=== PATIENT | female | born 1965 | race Two or more races ===

== ENCOUNTER 2020-03-03 15:14 | Outpatient (REF) | payer OTHER, SELFPAY ==
[2020-03-05 19:17] LABS: HPV mRNA E6/E7 Not Detected (Not Detected)
== END 2020-03-03 15:15 | disposition home or self-care (01) ==
LOC: HO.LAB 15:14
PROVIDERS: PCP Internal Medicine; Visit Provider Advanced Practice Midwife
DX: Z12.4 Encounter for screening for malignant neoplasm of cervix (principal); Z80.9 Family history of malignant neoplasm, unspecified
CPT/HCPCS: 87624; 88141; 88142

== ENCOUNTER 2020-03-04 11:36 | Outpatient (REF) | payer OTHER, SELFPAY ==
--- NOTE | 2020-03-04 11:46 | MM_ITS ---
EXAMINATION: MM SCREENING DIGITAL MAMMOGRAPHY, BILATERAL CLINICAL INFORMATION: Screening. Asymptomatic. Family history breast cancer: Mother, maternal grandmother, paternal grandmother, paternal aunt. The lifetime risk of breast cancer based on the Tyrer-Cuzick Model is 27%. COMPARISON: Mammography: 10/19/2017, 10/11/2016, 03/31/2016, 09/15/2015, 09/02/2015 TECHNIQUE: Digital mammography is performed in craniocaudal and mediolateral oblique views along with computer-aided detection (CAD). Wheelchair-bound with inherent technical challenges requiring 2 technologists. Exam tailored to patient capabilities. FINDINGS: There are scattered areas of fibroglandular density (ACR BI-RADS breast composition Category b). The left breast is unremarkable. There is no developing density or interval mass or architectural abnormality. The right breast has chronic asymmetry posterior 11:00 position and some punctate round calcifications again seen posterior medial right breast. No significant changes. MM/MM screening mammo BI IMPRESSION: No significant changes from prior studies. ASSESSMENT: BI-RADS 2: Benign RECOMMENDATION: 1. Routine annual mammography screening. 2. The lifetime risk of breast cancer based on the Tyrer-Cuzick Model is 27%. Additional annual adjunct screening with breast MRI may be of benefit in women with a risk score of 20% or greater. This patient's information was entered into a reminder system with a target due date for their next mammogram.
== END 2020-03-04 11:37 | disposition home or self-care (01) ==
LOC: HO.MAMMO 11:36
PROVIDERS: PCP Internal Medicine; Visit Provider Internal Medicine
DX: Z12.31 Encounter for screening mammogram for malignant neoplasm of breast (principal)
CPT/HCPCS: 77067

== ENCOUNTER → 2020-03-25 11:23 | Outpatient (BNVA) | payer MEDICARE, SELFPAY | PROVIDERS: PCP Internal Medicine; Visit Provider Surgery | DX: Z80.3 Family history of malignant neoplasm of breast (principal); Z80.0 Family history of malignant neoplasm of digestive organs; Z80.42 Family history of malignant neoplasm of prostate; Z80.41 Family history of malignant neoplasm of ovary | CPT/HCPCS: 99202 ==

== ENCOUNTER 2020-06-03 10:51 | Outpatient (REF) | payer OTHER, SELFPAY ==
[2020-06-03 12:29] LABS: Alanine Aminotransferase 17 U/L (0-31); Albumin Level 3.8 g/dL (3.5-5.0); Alkaline Phosphatase 119 U/L (39-117); Anion Gap 14 (12-20); Aspartate Amino Transferase 18 U/L (5-31); Bilirubin Total 0.3 mg/dL (0.0-1.0); Blood Urea Nitrogen 18 mg/dL (9-16); Carbon Dioxide 27 mmol/L (22-29); Chloride 103 mmol/L (96-108); Cholesterol 143 mg/dL; Estimated Glomerular Filt Rate > 60; Glucose Fasting 90 mg/dL (60-99); HDL Cholesterol 55 mg/dL; LDL Cholesterol Calculated 70 mg/dl; Potassium 4.5 mmol/L (3.3-5.1); Sodium 139 mmol/L (135-145); Total Protein 7.3 g/dL (6.5-8.0); Triglycerides 90 mg/dL
[2020-06-04 18:52] LABS: Phenytoin, Free/Unbound 1.5 mg/L (1.0-2.0)
[2020-06-08 16:32] LABS: Vitamin D 25-OH, D2 <4 ng/mL; Vitamin D 25-OH, D3 54 ng/mL; Vitamin D 25-OH, Total 54 ng/mL (30-100)
== END 2020-06-03 10:52 | disposition home or self-care (01) ==
LOC: HO.LAB 10:51
PROVIDERS: PCP Internal Medicine; Visit Provider Internal Medicine
DX: E55.9 Vitamin D deficiency, unspecified (principal); R56.9 Unspecified convulsions; E78.5 Hyperlipidemia, unspecified
CPT/HCPCS: 36415; 80053; 80061; 80184; 80186; 82306

== ENCOUNTER → 2020-07-27 14:43 | Outpatient (BNVA) | payer OTHER, SELFPAY | PROVIDERS: PCP Internal Medicine; Referring Provider Internal Medicine; Visit Provider Surgery | DX: Z91.89 Other specified personal risk factors, not elsewhere classified (principal) | CPT/HCPCS: 99212 ==

== ENCOUNTER 2020-09-02 16:48 | Outpatient (REF) | payer OTHER, SELFPAY | END 2020-09-02 16:49 | disposition home or self-care (01) | LOC: HO.MRI 16:48 | PROVIDERS: PCP Internal Medicine; Visit Provider Surgery | DX: Z13.89 Encounter for screening for other disorder (principal) ==

== ENCOUNTER 2020-09-09 10:21 | Outpatient (REF) | payer OTHER, SELFPAY | END 2020-09-09 10:22 | disposition home or self-care (01) | LOC: HO.MRI 10:21 | PROVIDERS: Visit Provider Surgery | DX: Z13.89 Encounter for screening for other disorder (principal) ==

== ENCOUNTER 2020-09-17 12:10 | Outpatient (REF) | payer OTHER, SELFPAY ==
--- NOTE | ~2020-09-17 | US_ITS ---
EXAMINATION: US SCREENING ULTRASOUND BREAST, BILATERAL CLINICAL INFORMATION: Family history breast cancer. Tyrer-Cuzick Score 27%%. Patient unable to undergo MRI. Request bilateral screening breast ultrasound as alternative to MR. COMPARISON: Mammography 03/04/2020, 11/20/2018, 10/19/2017 TECHNIQUE: Ultrasound is performed using grayscale imaging and color Doppler. Imaging is performed to include the four quadrants and retroareolar region. Both breasts are imaged. FINDINGS: Right breast: There is no suspicious finding by ultrasound. There is no cystic or solid mass or focal architectural abnormality. Left breast: There is an anechoic smooth nodule 1:00 position 7 cm from nipple measuring under 5 mm. There is no solid component or color flow. There is no increased or decreased through transmission of sound. Finding is probably benign and will be reassessed again with targeted ultrasound in 6 months. Remainder of the left breast shows no cystic or solid mass or focal architectural abnormality. Results are provided to the patient and family at time of visit using an baker biscuit. US/US breast LT complete IMPRESSION: 1. Left: Small anechoic nodule without posterior sound characteristics 1:00 position under 5 mm. 2. Right: No suspicious findings on screening breast ultrasound. ASSESSMENT: BI-RADS 3: Probably Benign RECOMMENDATION: Targeted left breast ultrasound in 6 months. This patient's information was entered into a reminder system with a target due date for their next breast imaging.
--- NOTE | ~2020-09-17 | US_ITS ---
EXAMINATION: US SCREENING ULTRASOUND BREAST, BILATERAL CLINICAL INFORMATION: Family history breast cancer. Tyrer-Cuzick Score 27%%. Patient unable to undergo MRI. Request bilateral screening breast ultrasound as alternative to MR. COMPARISON: Mammography 03/04/2020, 11/20/2018, 10/19/2017 TECHNIQUE: Ultrasound is performed using grayscale imaging and color Doppler. Imaging is performed to include the four quadrants and retroareolar region. Both breasts are imaged. FINDINGS: Right breast: There is no suspicious finding by ultrasound. There is no cystic or solid mass or focal architectural abnormality. Left breast: There is an anechoic smooth nodule 1:00 position 7 cm from nipple measuring under 5 mm. There is no solid component or color flow. There is no increased or decreased through transmission of sound. Finding is probably benign and will be reassessed again with targeted ultrasound in 6 months. Remainder of the left breast shows no cystic or solid mass or focal architectural abnormality. Results are provided to the patient and family at time of visit using an amf mechanic. US/US breast RT complete IMPRESSION: 1. Left: Small anechoic nodule without posterior sound characteristics 1:00 position under 5 mm. 2. Right: No suspicious findings on screening breast ultrasound. ASSESSMENT: BI-RADS 3: Probably Benign RECOMMENDATION: Targeted left breast ultrasound in 6 months. This patient's information was entered into a reminder system with a target due date for their next breast imaging.
== END 2020-09-17 12:11 | disposition home or self-care (01) ==
LOC: HO.MAMMO 12:10
PROVIDERS: Visit Provider Surgery
DX: N63.24 Unspecified lump in the left breast, lower inner quadrant (principal); Z91.89 Other specified personal risk factors, not elsewhere classified
CPT/HCPCS: 76641

== ENCOUNTER → 2021-01-25 12:16 | Outpatient (BNVA) | payer OTHER, SELFPAY | PROVIDERS: PCP Internal Medicine; Referring Provider Internal Medicine; Visit Provider Surgery | DX: N64.4 Mastodynia (principal); Z80.42 Family history of malignant neoplasm of prostate; Z80.0 Family history of malignant neoplasm of digestive organs; Z80.3 Family history of malignant neoplasm of breast | CPT/HCPCS: 99212 ==

== ENCOUNTER → 2021-03-04 15:27 | Outpatient (BNVA) | payer OTHER, SELFPAY | PROVIDERS: Visit Provider Advanced Practice Midwife ==

== ENCOUNTER 2021-03-30 12:37 | Outpatient (REF) | payer OTHER, SELFPAY ==
--- NOTE | ~2021-03-30 | MM_ITS ---
EXAMINATION: MM DIAGNOSTIC DIGITAL BREAST TOMOSYNTHESIS, BILATERAL US DIAGNOSTIC ULTRASOUND BREAST, BILATERAL CLINICAL INFORMATION: Due for yearly. Patient has right breast pain 9:00 position for approximately 2 months. Also follow-up probable benign nodule/cyst left breast noted on screening breast ultrasound 09/17/2020. Family history breast cancer, mother. The lifetime risk of breast cancer based on the Tyrer-Cuzick Model is 23%. COMPARISON: Mammography: 03/04/2020, 11/20/2018, 10/19/2017, 10/11/2016; bilateral breast ultrasound 09/17/2020 TECHNIQUE: Digital breast tomosynthesis is performed in both the craniocaudal and mediolateral oblique views along with computer-aided detection (CAD). Synthesized 2D images are generated from the tomosynthesis. Exam is technically challenging, patient wheelchair bound and 2 technologists required for positioning. Exam tailored to patient capabilities. Ultrasound right breast is targeted to the area of clinical symptoms 8:00 through 12:00 position. Ultrasound left breast is targeted to the upper breast 11:00 through 1:00 position. Ultrasound is performed using grayscale imaging and color Doppler without and with harmonics. FINDINGS: Mammography: There are scattered areas of fibroglandular density (ACR BI-RADS breast composition Category b). Parenchymal pattern is similar to prior studies. There is no developing density or interval mass or architectural abnormality. No skin thickening or coarsening of the Smith's ligaments. Linear asymmetric density posterior 11:00 right breast on CC view is stable from prior exams. There are some stable punctate calcifications mid 3:00 right breast again noted, possibly vascular. Ultrasound: Targeted right breast ultrasound demonstrates no cystic or solid mass, architectural abnormality, or focal duct ectasia. There is no edema tracking in soft tissue planes or skin thickening. Targeted ultrasound left breast demonstrates circumscribed anechoic nodule 1:00 position 6 cm from nipple under 5 mm similar to previous ultrasound 09/17/2020. There is no definite increased through-transmission of sound. No associated peripheral or internal color flow. No new cystic or solid mass or architectural abnormality. Management: Results are discussed with the patient and family at time of visit, using an director heart. MM/MM tomosynthesis diagnostic BI IMPRESSION: 1. No mammographic or ultrasound evidence of malignancy or inflammatory changes. 2. Mammogram shows no significant changes from prior study. 3. Probable benign small circumscribed anechoic nodule left breast stable, under 5 mm. 4. Patient study limitations, technically challenging exam. ASSESSMENT: BI-RADS 3: Probably Benign RECOMMENDATION: 1. Patient's right breast pain should be managed based on the clinical impression. 2. Bilateral mammography in 12 months. Targeted left breast ultrasound at time of mammography to reassess probable benign anechoic nodule under 5 mm. This patient's information was entered into a reminder system with a target due date for their next mammogram.
== END 2021-03-30 12:38 | disposition home or self-care (01) ==
LOC: HO.MAMMO 12:37
PROVIDERS: PCP Internal Medicine; Visit Provider Advanced Practice Midwife
DX: N64.4 Mastodynia (principal); Z91.89 Other specified personal risk factors, not elsewhere classified
CPT/HCPCS: 76642; 77062; 77066

== ENCOUNTER → 2021-08-02 12:20 | Outpatient (BNVA) | payer OTHER, SELFPAY | PROVIDERS: PCP Internal Medicine; Visit Provider Surgery | DX: N64.4 Mastodynia (principal); Z91.89 Other specified personal risk factors, not elsewhere classified; Z80.3 Family history of malignant neoplasm of breast; Z80.42 Family history of malignant neoplasm of prostate; Z80.0 Family history of malignant neoplasm of digestive organs; Z80.41 Family history of malignant neoplasm of ovary | CPT/HCPCS: 99212 ==

== ENCOUNTER → 2021-08-08 12:25 | Outpatient (BNVA) | payer OTHER, SELFPAY | PROVIDERS: PCP Internal Medicine; Visit Provider Orthopaedic Surgery | DX: M19.011 Primary osteoarthritis, right shoulder (principal) | CPT/HCPCS: 20610; 99202; J1100 ==

== ENCOUNTER 2021-09-16 08:45 | Outpatient (REF) | payer OTHER, SELFPAY ==
[2021-09-16 09:28] LABS: MANUAL DIFF FLAG NO
[2021-09-16 10:59] LABS: Basophils Percent Auto 0.3 % (0-2); Eosinophils Absolute Auto 0.1 X10*3/uL (0.0-0.4); Eosinophils Percent Auto 1.4 % (0-4); Hematocrit 39.1 % (37.0-47.0); Hemoglobin 13.2 g/dl (12.0-16.0); Imm Gran Abs Auto 0.03 X10*3/uL (0.00-0.03); Imm Gran Pct Auto 0.5 % (0.0-0.4); Lymphocytes Absolute Auto 3.1 X10*3/uL (1.2-4.9); Lymphocytes Percent Auto 52.8 % (20-40); Mean Corpuscular HGB Conc 33.8 g/dl (31.0-35.0); Mean Corpuscular Hemoglobin 33.1 pg (27.0-33.0); Mean Platelet Volume 11.8 fL (9.4-12.3); Monocytes Absolute Auto 0.6 X10*3/uL (0.1-1.2); Monocytes Percent Auto 9.6 % (2-11); Neutrophils Absolute Auto 2.1 x10*3/uL (2.0-8.3); Neutrophils Percent Auto 35.4 % (45-73); Platelet Count 145 X10*3/uL (160-400); Red Blood Count 3.99 X10*6/uL (4.20-5.50); Red Cell Distribution Width 13.5 % (11.0-16.0); White Blood Count 5.8 X10*3/uL (4.8-10.8)
[2021-09-16 11:36] LABS: Alanine Aminotransferase 19 U/L (0-31); Albumin Level 3.8 g/dL (3.5-5.0); Alkaline Phosphatase 113 U/L (39-117); Anion Gap 15 (12-20); Aspartate Amino Transferase 18 U/L (5-31); Bilirubin Total < 0.2 mg/dL (0.0-1.0); Blood Urea Nitrogen 21 mg/dL (9-16); Calcium 8.8 mg/dL (8.4-10.2); Carbon Dioxide 25 mmol/L (22-29); Chloride 105 mmol/L (96-108); Cholesterol 156 mg/dL; Estimated Glomerular Filt Rate > 60; Glucose Fasting 80 mg/dL (60-99); HDL Cholesterol 54 mg/dL; LDL Cholesterol Calculated 90 mg/dl; Potassium 4.2 mmol/L (3.3-5.1); Sodium 141 mmol/L (135-145); Total Protein 7.4 g/dL (6.5-8.0); Triglycerides 63 mg/dL
[2021-09-16 12:15] LABS: Valproate 62.9 mcg/mL (50.0-100.0)
[2021-09-18 12:47] LABS: Phenytoin, Free/Unbound 0.6 mg/L (1.0-2.0)
== END 2021-09-16 08:46 | disposition home or self-care (01) ==
LOC: HO.LAB 08:45
PROVIDERS: PCP Internal Medicine; Visit Provider Internal Medicine
DX: R56.9 Unspecified convulsions (principal); E55.9 Vitamin D deficiency, unspecified; E78.5 Hyperlipidemia, unspecified
CPT/HCPCS: 36415; 80053; 80061; 80164; 80184; 80186; 82306; 85025

== ENCOUNTER → 2021-11-07 13:34 | Outpatient (BNVA) | payer OTHER, SELFPAY | PROVIDERS: PCP Internal Medicine; Visit Provider Orthopaedic Surgery | DX: M19.011 Primary osteoarthritis, right shoulder (principal) | CPT/HCPCS: 20610; 99212; J1100 ==

== ENCOUNTER → 2022-03-21 12:30 | Outpatient (BNVA) | payer OTHER, SELFPAY | PROVIDERS: PCP Internal Medicine; Visit Provider Advanced Practice Midwife | DX: Z13.89 Encounter for screening for other disorder (principal) ==

== ENCOUNTER 2022-04-14 14:35 | Outpatient (REF) | payer OTHER, SELFPAY ==
--- NOTE | ~2022-04-14 | MM_ITS ---
EXAMINATION: MM DIAGNOSTIC DIGITAL BREAST TOMOSYNTHESIS, BILATERAL US DIAGNOSTIC ULTRASOUND BREAST, LEFT CLINICAL INFORMATION: Due for yearly. Also follow-up probable benign nodule/cyst left breast noted on screening breast ultrasound 09/17/2020. Family history breast cancer, mother. TC score 17%. COMPARISON: Mammography: 03/30/2021, 03/04/2020, 11/20/2018; left breast ultrasound 03/30/2021, 09/17/2020 (BI-RADS 3). TECHNIQUE: Digital breast tomosynthesis is performed in both the craniocaudal and mediolateral oblique views along with computer-aided detection (CAD). Synthesized 2D images are generated from the tomosynthesis. Additional right CC and right MLO views are obtained. Exam is technically challenging, requiring 2 technologists for positioning, tailored to patient capabilities. Ultrasound left breast is targeted to the upper breast using grayscale imaging and color Doppler without and with harmonics. FINDINGS: There are scattered areas of fibroglandular density (ACR BI-RADS breast composition Category b). Parenchymal pattern is similar to prior studies and there is no developing density or architectural abnormality. Fine loosely grouped calcifications posterior 3:30 right breast are similar to prior exams and appear to be vascular on tomography. Ultrasound left breast demonstrates a small circumscribed round hypoechoic nodule under 5 mm with no color flow. No increased or decreased through transmission of sound. Finding will be reassessed again at next bilateral mammography to conclude long-term surveillance. Results are provided to the patient at time of visit by the technologist. MM/MM tomosynthesis diagnostic BI IMPRESSION: -Mammography shows no significant change from prior exams. -Small round hypoechoic nodule left breast under 5 mm on ultrasound, stable. ASSESSMENT: BI-RADS 3: Probably Benign RECOMMENDATION: Diagnostic mammography and targeted left breast ultrasound at time of next annual exam, due in 12 months. This patient's information was entered into a reminder system with a target due date for their next mammogram.
--- NOTE | ~2022-04-14 | US_ITS ---
Diagnostic left breast ultrasound is described in a single combined report along with the bilateral diagnostic mammography under accession number [id number].
== END 2022-04-14 14:36 | disposition home or self-care (01) ==
LOC: HO.MAMMO 14:35
PROVIDERS: Visit Provider Advanced Practice Midwife
DX: R92.2 Inconclusive mammogram (principal)
CPT/HCPCS: 76642; 77062; 77066

== ENCOUNTER 2022-04-21 09:07 | Outpatient (REF) | payer OTHER, SELFPAY ==
[2022-04-21 11:37] LABS: Valproate 63.7 mcg/mL (50.0-100.0)
[2022-04-21 11:40] LABS: Alanine Aminotransferase 11 U/L (0-31); Albumin Level 3.6 g/dL (3.5-5.0); Alkaline Phosphatase 136 U/L (39-117); Anion Gap 14 (12-20); Aspartate Amino Transferase 17 U/L (5-31); Bilirubin Total 0.4 mg/dL (0.0-1.0); Blood Urea Nitrogen 18 mg/dL (9-16); Calcium 8.6 mg/dL (8.4-10.2); Carbon Dioxide 22 mmol/L (22-29); Chloride 108 mmol/L (96-108); Cholesterol 148 mg/dL; Estimated Glomerular Filt Rate > 60; Glucose Fasting 87 mg/dL (60-99); HDL Cholesterol 46 mg/dL; LDL Cholesterol Calculated 86 mg/dl; Potassium 4.3 mmol/L (3.3-5.1); Sodium 140 mmol/L (135-145); Total Protein 7.5 g/dL (6.5-8.0); Triglycerides 81 mg/dL
[2022-04-21 16:25] LABS: MANUAL DIFF FLAG NO
[2022-04-21 16:31] LABS: Basophils Percent Auto 0.4 % (0-2); Eosinophils Absolute Auto 0.1 X10*3/uL (0.0-0.4); Eosinophils Percent Auto 0.8 % (0-4); Hematocrit 40.5 % (37.0-47.0); Hemoglobin 13.7 g/dl (12.0-16.0); Imm Gran Abs Auto 0.01 X10*3/uL (0.00-0.03); Imm Gran Pct Auto 0.1 % (0.0-0.4); Lymphocytes Percent Auto 40.5 % (20-40); Mean Corpuscular HGB Conc 33.8 g/dl (31.0-35.0); Mean Corpuscular Hemoglobin 32.7 pg (27.0-33.0); Mean Corpuscular Volume 96.7 fL (80.0-98.0); Mean Platelet Volume 11.2 fL (9.4-12.3); Monocytes Absolute Auto 0.7 X10*3/uL (0.1-1.2); Monocytes Percent Auto 9.4 % (2-11); Neutrophils Absolute Auto 3.6 x10*3/uL (2.0-8.3); Neutrophils Percent Auto 48.8 % (45-73); Platelet Count 130 X10*3/uL (160-400); Red Blood Count 4.19 X10*6/uL (4.20-5.50); Red Cell Distribution Width 12.7 % (11.0-16.0); White Blood Count 7.3 X10*3/uL (4.8-10.8)
[2022-04-24 10:28] LABS: Phenytoin, Free/Unbound 0.9 mg/L (1.0-2.0)
[2022-04-29 14:14] LABS: Vitamin D 25-OH, D2 <4 ng/mL; Vitamin D 25-OH, D3 57 ng/mL; Vitamin D 25-OH, Total 57 ng/mL (30-100)
== END 2022-04-21 09:08 | disposition home or self-care (01) ==
LOC: HO.LAB 09:07
PROVIDERS: Absent Provider Internal Medicine; PCP Internal Medicine; Visit Provider Nurse Practitioner Family
DX: Z00.00 Encounter for general adult medical examination without abnormal findings (principal); E78.5 Hyperlipidemia, unspecified; E55.9 Vitamin D deficiency, unspecified; E56.9 Vitamin deficiency, unspecified; R56.9 Unspecified convulsions
CPT/HCPCS: 36415; 80053; 80061; 80164; 80184; 80186; 82306; 85025

== ENCOUNTER → 2022-04-25 09:59 | Outpatient (BNVA) | payer OTHER, SELFPAY | PROVIDERS: PCP Internal Medicine; Referring Provider Internal Medicine; Visit Provider Surgery | DX: N64.4 Mastodynia (principal); Z91.89 Other specified personal risk factors, not elsewhere classified | CPT/HCPCS: 99212 ==

== ENCOUNTER → 2022-05-15 14:31 | Outpatient (BNVA) | payer OTHER, SELFPAY | PROVIDERS: PCP Internal Medicine; Visit Provider Orthopaedic Surgery | DX: M19.011 Primary osteoarthritis, right shoulder (principal) | CPT/HCPCS: 20610; 99212; J1100 ==

== ENCOUNTER 2022-10-26 12:04 | Outpatient (AMB) | payer OTHER, SELFPAY ==
[2022-10-26 13:01] VITALS: BP 110/61; PULSE 78; BMI 38.8
--- NOTE | 2022-10-26 13:01 | MHC.OFFVIS ---
Intake Vital Signs 10/26/22 13:01 Height 4 ft 11 in Weight 192 lb BMI 38.8 BP 110/61 Blood Pressure Location Rt brachial Position Sitting Pulse 78 Intake Visit Reasons: 6 month follow up visit, breast examination Intake Note: Patient here for 6m breast exam. Reports no changes with breasts. Last mammo in March 2022. Denies changes with medical hx since david. 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: Yes Accompanied by: Daughter Allergies No Known Allergies [No Known Allergies*] Allergy (Verified 10/26/22 13:03) Medication List - Last Reconciled 10/26/22 by Gustavo Corona MD aspirin (Adult Aspirin Regimen) 81 mg PO DAILY 90 days atorvastatin 20 mg PO BEDTIME 90 days cholecalciferol (vitamin D3) 50 mcg PO DAILY 90 days clonazepam 0.5 mg PO BID PRN 30 days [diapers adult pull-ups As directed] divalproex 500 mg PO TID 90 days lactulose 10 grams (15 mL) PO BEDTIME PRN 30 days naproxen 500 mg PO BID 90 days omeprazole 20 mg PO DAILY 90 days oxybutynin chloride ER 10 mg PO DAILY 90 days phenobarbital 60 mg PO DAILY 90 days phenobarbital 30 mg PO BEDTIME 90 days phenytoin sodium extended 100 mg PO TID 90 days risperidone 1 mg PO BID 90 days sennosides (senna) 8.6 mg PO BEDTIME PRN 90 days sertraline 100 mg PO BID underpads (Maxicare Underpads) Use 1-3 bed pads at bedtime HPI HPI Comments History of Present Illness Details 57-year-old female patient presenting with a history of a developmental anomaly and is mostly nonverbal returning today for routine high risk breast cancer examination. Her family history is significant for prostate cancer in her father and maternal uncle, colon cancer in her mother and maternal grandmother, ovarian cancer in her mother and maternal grandmother, breast cancer in her maternal grandmother, and stomach cancer in her mother.? The patient has never had breast problems or breast surgery.? She is , postmenopausal, with no history of control use.? No previous genetic testing has been performed on any of her family members.? Her most recent mammogram and bilateral ultrasound dated 04/14/2022 revealed no significant changes from the prior exam. Small round hypoechoic nodule in the left breast under 5 mm noted on ultrasound is stable. The finding was probably benign (BI-RADS 3). A diagnostic mammography and targeted ultrasound of the left breast at the time of her next annual exam due in 12 months is scheduled. Her Tyrer-Cuzick model lifetime risk of breast cancer was previously calculated at 23 % putting her at high risk for breast cancer.? The current Tyrer-Cuzick score is 17%. Patient is unable to tolerate breast MRIs. She denies any new breast symptoms in either breast. [facility] Medical History Benign head tremor Wheelchair bound Mild recurrent major depression Constipation by delayed colonic transit At high risk for breast cancer Developmental anomaly GERD (gastroesophageal reflux disease) Shoulder pain Seizures Hypovitaminosis D Dyslipidemia Urinary incontinence Surgical History History of colonoscopy (01/25/16) History of shoulder surgery Family History Father Hypertension Prostate cancer Mother Stomach cancer Ovarian cancer Colon cancer Maternal Grandmother Breast cancer Colon cancer Stomach cancer Maternal Uncle Prostate cancer Maternal Aunt Stomach cancer Family/Other FH: mental illness Maternal Aunt History of throat cancer Social History Housing: Apartment Alcohol intake: never Patient Tobacco Use Status: Never used Tobacco e-Cigarette/Vaping Use: Never Used Second Hand Smoke Exposure: No service: No Current occupational status: disabled Cognitive needs: No Hearing needs: No Vision needs: No Female Reproductive History Menstrual Age of Menarche: 11 Review of Systems Const Unobtainable due to mental status Physical Exam Vital Signs: Last Vital Signs Pulse 78 10/26/22 13:01 BP 110/61 10/26/22 13:01 BMI result Body Mass Index 38.8 Const Other: Nonverbal and wheelchair, no acute distress, well nourished HEENT Head: Yes normocephalic and Yes atraumatic Neck Neck: Yes no lymphadenopathy Chest Other: Left breast: No skin change, no nipple retraction, no nipple discharge, no palpable mass, no enlarged lymph nodes. Right breast: No skin change, no nipple retraction, no nipple discharge, no palpable mass, no enlarged lymph nodes Resp Other: Breathing comfortably on room air, no respiratory distress Skin Other: Warm, dry, no rash. Extrem General: Yes no clubbing, cyanosis or edema Assessment & Plan Assessment & Plan (1) At high risk for breast cancer: Code(s): Z91.89 - Other specified personal risk factors, not elsewhere classified (2) Mastodynia of right breast: Code(s): N64.4 - Mastodynia Plan 57-year-old female patient high risk for breast cancer with a Tyrer-Cuzick risk of score of 23% returning for six-month follow-up breast exam. Her most recent mammogram and ultrasound of 04/14/2022 revealed no significant change from the prior mammogram. There is a small round hypoechoic nodule in the left breast under 5 mm is noted on ultrasound and felt to be stable. Findings were felt to be probably benign (BI-RADS 3). A diagnostic mammogram and targeted left breast ultrasound is recommended at the next annual exam due in 12 months. A follow-up mammogram is scheduled for 04/18/2023. I recommended follow-up examination in 6 months following this mammogram. Coding Level of Care Code Est Pt Level 3 (51941) Diagnoses At high risk for breast cancer Z91.89 Mastodynia of right breast N64.4
== END 2022-10-26 13:20 | disposition home or self-care (01) ==
PROVIDERS: Visit Provider Surgery
DX: N64.4 Mastodynia (principal); Z91.89 Other specified personal risk factors, not elsewhere classified
CPT/HCPCS: 99213

== ENCOUNTER → 2022-10-26 12:04 | Outpatient (BNVA) | payer OTHER, SELFPAY | PROVIDERS: Visit Provider Surgery | DX: N64.4 Mastodynia (principal); Z91.89 Other specified personal risk factors, not elsewhere classified | CPT/HCPCS: 99212 ==

== ENCOUNTER 2023-01-01 09:57 | Outpatient (REF) | payer OTHER, SELFPAY ==
[2023-01-01 11:25] LABS: Alanine Aminotransferase 15 U/L (0-31); Albumin Level 3.5 g/dL (3.5-5.0); Alkaline Phosphatase 106 U/L (39-117); Anion Gap 12 (12-20); Aspartate Amino Transferase 19 U/L (5-31); Bilirubin Total 0.2 mg/dL (0.0-1.0); Blood Urea Nitrogen 9 mg/dL (9-16); Calcium 8.6 mg/dL (8.4-10.2); Carbon Dioxide 26 mmol/L (22-29); Chloride 107 mmol/L (96-108); Cholesterol 135 mg/dL (<200); Estimated Glomerular Filt Rate > 60; Glucose Fasting 79 mg/dL (60-99); HDL Cholesterol 41 mg/dL (>40); LDL Cholesterol Calculated 79 mg/dL (<100); Sodium 141 mmol/L (135-145); Total Protein 7.4 g/dL (6.5-8.0); Triglycerides 75 mg/dL (<150)
[2023-01-01 11:40] LABS: Vitamin D 25-OH Total 77.3 ng/mL (>30)
== END 2023-01-01 09:58 | disposition home or self-care (01) ==
LOC: HO.LAB 09:57
PROVIDERS: PCP Internal Medicine; Visit Provider Internal Medicine
DX: E78.5 Hyperlipidemia, unspecified (principal); R56.9 Unspecified convulsions; E55.9 Vitamin D deficiency, unspecified
CPT/HCPCS: 36415; 80053; 80061; 80184; 80186; 82306

== ENCOUNTER 2023-01-22 12:39 | Outpatient (AMB) | payer OTHER, SELFPAY ==
[2023-01-22 12:41] VITALS: BP 110/72; BMI 39.6
--- NOTE | 2023-01-22 12:41 | A.OFFPC_ITS ---
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 Accompanied by: cousin Allergies No Known Allergies [No Known Allergies*] Allergy (Verified 01/22/23 12:59) Medication List - Last Reconciled 01/22/23 by Cristina Chaidez MD aspirin (Adult Aspirin Regimen) 81 mg PO DAILY 90 days atorvastatin 20 mg PO BEDTIME 90 days cholecalciferol (vitamin D3) 50 mcg PO DAILY 90 days clonazepam 0.5 mg PO BID PRN 30 days [diapers adult pull-ups As directed] divalproex 500 mg PO TID 90 days lactulose 10 grams (15 mL) PO BEDTIME PRN 30 days naproxen 500 mg PO BID 90 days omeprazole 20 mg PO DAILY 90 days oxybutynin chloride ER 10 mg PO DAILY 90 days phenobarbital 30 mg PO BEDTIME 90 days phenobarbital 60 mg PO DAILY 90 days phenytoin sodium extended 100 mg PO TID 90 days risperidone 1 mg PO BID 90 days sennosides (senna) 8.6 mg PO BEDTIME PRN 90 days sertraline 100 mg PO BID underpads (Maxicare Underpads) Use 1-3 bed pads at bedtime Tobacco use date assessed: 04/27/22 Dental Screening Dental Screen Date: 01/22/23 Did you have a dental visit in the last 12 months?: No Did you have a dental problem in the last 6 months where you did not have access to dental care?: No Was dental information given to patient?: Patient has dentist HPI HPI Comments History of Present Illness Details This is a 57-year-old female with mild recurrent major depression and seizures that comes for her physical exam. She is in a wheelchair and is accompanied by canary raiser which is a cousin. Depression stable with medications. Still has mild seizures and this is follow by Neurology. Labs were discussed. Last mammogram was 2022. Last Pap smear was 2020 was normal with HPV negative. Had colonoscopy in 2014 showing tubular adenoma which was repeated in 2015 in which he was normal. Will be referred for another colonoscopy. REPLACED BY [facility] Medical History (Updated 01/22/23 @ 13:07 by Cristina Chaidez MD) Benign head tremor Wheelchair bound Mild recurrent major depression Constipation by delayed colonic transit At high risk for breast cancer Developmental anomaly GERD (gastroesophageal reflux disease) Shoulder pain Seizures Hypovitaminosis D Dyslipidemia Urinary incontinence Surgical History History of colonoscopy (01/25/16) History of shoulder surgery Family History Father Hypertension Prostate cancer Mother Stomach cancer Ovarian cancer Colon cancer Maternal Grandmother Breast cancer Colon cancer Stomach cancer Maternal Uncle Prostate cancer Maternal Aunt Stomach cancer Family/Other FH: mental illness Maternal Aunt History of throat cancer Social History Housing: Apartment Alcohol intake: never Patient Tobacco Use Status: Never used Tobacco e-Cigarette/Vaping Use: Never Used Second Hand Smoke Exposure: No service: No Current occupational status: disabled Cognitive needs: Yes Hearing needs: No Vision needs: No Female Reproductive History Menstrual Age of Menarche: 11 Questionnaire Thrive Questionnaire Date Thrive assessed: 04/27/22 NORBERTO-7 AMB Questionnaire NORBERTO-7 Date NORBERTO - 7 assessed: 04/27/22 Source: Developed by Drs. Dallas Noyola, Erin Gates, Farhad Cobb and colleagues, with an educational coleman from [employer]. Review of Systems Const All systems reviewed & are unremarkable except as noted in HPI and below Eyes Reports no additional complaints, Denies change in vision and Denies other visual disturbances Card Denies chest pain at rest, Denies chest pain with activity, Denies edema, Denies irregular heart rhythm, Denies claudication, Denies dyspnea, Denies dyspnea on exertion, Denies orthopnea, Denies paroxysmal nocturnal dyspnea and Denies slow heart rate Resp Denies cough, Denies dyspnea and Denies dyspnea on exertion GI Denies abdominal pain, Denies change in bowel habits, Denies excessive flatus, Denies nausea and Denies vomiting Denies urinary incontinence, Denies urinary hesitancy and Denies urinary urgency Musc Denies abnormal gait, Denies atrophy, Denies deformity and Reports limited range of motion Skin/Breast Denies bleeding lesions, Denies changing lesions and Denies rash Neuro Denies abnormal gait and Denies lack of coordination Physical exam (Primary Care) Vital Signs: Last Vital Signs BP 110/72 01/22/23 12:41 BMI result Body Mass Index 39.6 Tobacco/Smoking Status: Tobacco use Status Tobacco use date assessed 04/27/22 01/22/23 12:47 Patient Tobacco Use Status Never used Tobacco 01/22/23 12:47 e-Cigarette/Vaping Use Never Used 01/22/23 12:47 Thrive Assessment: Date of Thrive Assessment Date Thrive assessed 04/27/22 01/22/23 12:47 Const Orientation/consciousness: patient oriented x3 Limitations: wheelchair HENMT Head: Yes normal to inspection, Yes normocephalic and Yes atraumatic Ears: external ears normal Eyes General: appearance normal, both eyes and all related structures Eyelids: Yes eyelids normal Conjunctivae: conjunctivae normal Neck Neck: Yes normal visual inspection and Yes supple Resp Effort & Inspection: normal respiratory effort Auscultation: clear to auscultation bilaterally Cardio Jugular venous distension: no JVD Rate: regular rate Rhythm: regular rhythm Heart sounds: S1 normal heart sound present and S2 normal heart sound present GI Inspection: Yes normal to inspection Palpation (GI): Soft to palpation and nontender Auscultation: normal bowel sounds Skin General skin exam: no rashes or lesions noted Neuro General: patient oriented x3 and no focal motor deficits Extrem Right upper extremity: shoulder/upper arm Details: tenderness and abnormal ROM Details: pain with active ROM Details: in ABduction and in extension Psych Appearance: grossly normal Office Procedures Flu Questionnaire Does the patient have a severe egg allergy?: No Immunizations flu vacc [id number] 6mos up(PF) 60 mcg(15 mcgx4)/0.5 mL IM syringe Performing Provider: Cristina Chaidez MD [facility] Documented (not given) by: ASHLEY Nguyen on 01/22/23 12:52 Reason Not Given: Received Previously Assessment and Plan Assessment & Plan (1) Adult general medical exam: Code(s): Z00.00 - Encounter for general adult medical examination without abnormal findings Plan: Repeat in a year. (2) Mild recurrent major depression: Code(s): F33.0 - Major depressive disorder, recurrent, mild Plan: Continue SSRI. (3) Seizures: Code(s): R56.9 - Unspecified convulsions Plan: Continue phenobarbital and phenytoin. Follow-up with Neurology. Orders: Orders Influenza [id number] Immunization Today Z23 - Encounter for immunization Referrals Gastroenterology Referral Z12.11 - Encounter for screening for malignant neoplasm of colon Coding Level of Care Code Est Pt Prev Care 40-64y(28498) Diagnoses Adult general medical exam Z00.00 Mild recurrent major depression F33.0 Seizures R56.9 Time Spent (min) 32
== END 2023-01-22 13:08 | disposition home or self-care (01) ==
PROVIDERS: PCP Internal Medicine; Visit Provider Internal Medicine
DX: Z00.00 Encounter for general adult medical examination without abnormal findings (principal); F33.0 Major depressive disorder, recurrent, mild; R56.9 Unspecified convulsions
CPT/HCPCS: 99396

== ENCOUNTER → 2023-04-18 13:00 | Outpatient (BNV) | payer OTHER, SELFPAY | PROVIDERS: PCP Internal Medicine; Visit Provider Radiology Diagnostic Radiology | DX: R92.8 Other abnormal and inconclusive findings on diagnostic imaging of breast (principal) | CPT/HCPCS: 76642; 77066; G0279 ==

== ENCOUNTER 2023-04-18 13:04 | Outpatient (REF) | payer OTHER, SELFPAY ==
--- NOTE | ~2023-04-18 | MM_ITS ---
EXAMINATION: MM DIAGNOSTIC DIGITAL BREAST TOMOSYNTHESIS, BILATERAL US BREAST LIMITED, LEFT MAMMOGRAPHY: CLINICAL INFORMATION: Due for yearly. Also follow-up probable benign nodule/cyst left breast noted on screening breast ultrasound 09/17/2020. Also follow-up asymmetric density in the 11:00 axis posterior right CC view. Family history breast cancer, mother COMPARISON: Mammography: 04/14/2022, 03/30/2021, 03/04/2020, 11/20/2018; left breast ultrasound 04/14/2022, 03/30/2021, 09/17/2020 (BI-RADS 3). TECHNIQUE: Digital breast tomosynthesis is performed in both the craniocaudal and mediolateral oblique views along with computer-aided detection (CAD). Synthesized 2D images are generated from the tomosynthesis. In addition, full-field 3-D digital left ML view was also obtained. Exam is technically challenging, requiring 2 technologists for positioning, tailored to patient capabilities. FINDINGS: There are scattered areas of fibroglandular density (ACR BI-RADS breast composition Category b). Parenchymal pattern is similar to prior studies and there is no developing density or architectural abnormality. Fine loosely grouped calcifications posterior 3:30 right breast are similar to prior exams and appear to be vascular on tomography. These calcifications are benign. 1 view asymmetry in the 11:00 posterior right CC view is unchanged. Nodular focus in the upper MLO view is also unchanged from multiple priors. These findings are benign. There are no skin or axillary abnormalities. ULTRASOUND: CLINICAL INFORMATION: Third follow-up of minimally complicated 3 mm cyst left breast 1:00 axis, 6 cm from the nipple. COMPARISON: As above. TECHNIQUE: Targeted sonographic evaluation was left breast performed using a high frequency linear transducer. Attention was focused on the 1:00 axis in the region of known complicated cyst. Selected archived documentation. FINDINGS: LEFT BREAST: In the 1:00 axis of the left breast, 6 cm from the nipple, there is a now simple anechoic 2 x 3 x 3 mm cyst with through transmission. This finding is benign and has remained unchanged since 09/17/2020. No further follow-up recommended. There are no additional abnormal findings. MM/MM tomosynthesis diagnostic BI IMPRESSION: There are no findings in either breast suspicious for malignancy. There are stable benign findings, for which no further follow-up is recommended. Recommend the patient resume routine annual screening mammography. OVERALL ASSESSMENT: Mammography: BI-RADS 2 - Benign Findings Ultrasound: BI-RADS 2 - Benign Findings RECOMMENDATION: 1 year F/U This patient's information was entered into a reminder system with a target due date for their next mammogram.
== END 2023-04-18 13:05 | disposition home or self-care (01) ==
LOC: HO.MAMMO 13:04
PROVIDERS: PCP Internal Medicine; Visit Provider Internal Medicine
DX: R92.2 Inconclusive mammogram (principal)
CPT/HCPCS: 76642; 77062; 77066

== ENCOUNTER 2023-05-01 08:19 | Outpatient (AMB) | payer OTHER, SELFPAY ==
--- NOTE | 2023-05-01 08:22 | A.OFFVIS_ITS ---
Intake Vital Signs 3 05/01/23 08:33 Height 4 ft 11 in Weight 194 lb 0.108 oz BMI 39.2 BP 110/70 Blood Pressure Location Lt brachial Position Sitting Intake Visit Reasons: 6 month follow up visit, breast examination Intake Note: Patient is seen in office for 6 month follow up visit, breast exam. Pt c/o: continued left breast lump, no changes since last visit mm & us: 04/18/23 Car Examiner Required: Yes Car Examiner Language: Risk And Insurance Consultant Name: Maria Victoria RAMIREZ Information Interpreted: non-clinical & clinical Mix House Tender: Mix House Tender Present Accompanied by: Family/Other Allergies No Known Allergies [No Known Allergies*] Allergy (Verified 05/01/23 08:27) Medication List - Last Reconciled 05/01/23 by Gustavo Corona MD aspirin (Adult Aspirin Regimen) 81 mg PO DAILY 90 days atorvastatin 20 mg PO BEDTIME 90 days cholecalciferol (vitamin D3) 50 mcg PO DAILY 90 days clonazepam 0.5 mg PO TID PRN [diapers adult pull-ups As directed] divalproex 500 mg PO TID 90 days lactulose 10 grams (15 mL) PO BEDTIME PRN 30 days naproxen 500 mg PO BID 90 days omeprazole 20 mg PO DAILY 90 days oxybutynin chloride ER 10 mg PO DAILY 90 days phenobarbital 30 mg PO BEDTIME 90 days phenobarbital 60 mg PO DAILY 90 days phenytoin sodium extended 100 mg PO TID 90 days risperidone 1 mg PO BID 90 days sennosides (senna) 8.6 mg PO BEDTIME PRN 90 days sertraline 100 mg PO BID underpads (Maxicare Underpads) Use 1-3 bed pads at bedtime HPI HPI Comments 2 History of Present Illness0 Details 58-year-old female patient presenting wi th a history of a developmental anomaly and is mostly nonverbal returning today for routine high risk breast cancer examination. Her family history is significant for prostate cancer in her father and maternal uncle, colon cancer in her mother and maternal grandmother, ovarian cancer in her mother and maternal grandmother, breast cancer in her maternal grandmother, and stomach cancer in her mother.? The patient has never had breast problems or breast surgery.? She is , postmenopausal, with no history of control use.? No previous genetic testing has been performed on any of her family members.? Her most recent mammogram and bilateral ultrasound dated 04/18/2023 revealed no mammographic evidence of malignancy. Ultrasound of the left breast revealed a 2 x 3 x 3 mm cyst with through transmission located in the 01:00 o'clock axis approximately 6 cm from the nipple. This remains unchanged since 09/17/2020. No further follow- up is recommended (mammogram BI-RADS 2, ultrasound BI-RADS 2). Her Tyrer-Cuzick model lifetime risk of breast cancer was previously calculated at 23 % putting her at high risk for breast cancer.? Patient is unable to tolerate breast MRIs. She denies any new breast symptoms in either breast. FORMERLY [facility] Medical History Benign head tremor Wheelchair bound Mild recurrent major depression Constipation by delayed colonic transit At high risk for breast cancer Developmental anomaly GERD (gastroesophageal reflux disease) Shoulder pain Seizures Hypovitaminosis D Dyslipidemia Urinary incontinence Surgical History History of colonoscopy (01/25/16) History of shoulder surgery Family History Father Hypertension Prostate cancer Mother Stomach cancer Ovarian cancer Colon cancer Maternal Grandmother Breast cancer Colon cancer Stomach cancer Maternal Uncle Prostate cancer Maternal Aunt Stomach cancer Family/Other FH: mental illness Maternal Aunt History of throat cancer Social History Housing: Apartment Alcohol intake: never Patient Tobacco Use Status: Never used Tobacco e-Cigarette/Vaping Use: Never Used Second Hand Smoke Exposure: No service: No Current occupational status: disabled Cognitive needs: Yes Hearing needs: No Vision needs: No Female Reproductive History Menstrual Age of Menarche: 11 Review of Systems Const Unobtainable due to mental status Physical Exam Vital Signs: Last Vital Signs BP 110/70 05/01/23 08:33 BMI result Body Mass Index 39.2 Const Other: Nonverbal and wheelchair, no acute distress, well nourished HEENT Head: Yes normocephalic and Yes atraumatic Neck Neck: Yes no lymphadenopathy Chest Other: Left breast: No skin change, no nipple retraction, no nipple discharge, area of thickening in the 1 o'clock position corresponding to the ultrasound findings of a simple cyst, no other palpable mass, no enlarged lymph nodes. Right breast: No skin change, no nipple retraction, no nipple discharge, no palpable mass, no enlarged lymph nodes Chest/axillae images: 2 1. Cyst 01:00 o'clock Resp Other: Breathing comfortably on room air, no respiratory distress Skin Other: Warm, dry, no rash. Extrem General: Yes no clubbing, cyanosis or edema Assessment & Plan Assessment & Plan (1) At high risk for breast cancer: Code(s): Z91.89 - Other specified personal risk factors, not elsewhere classified (2) Mastodynia of right breast: Code(s): N64.4 - Mastodynia Plan 58-year-old female patient high risk for breast cancer with a Tyrer-Cuzick risk of score of 23% returning for six-month follow-up breast exam. Her most recent mammogram and ultrasound of 04/18/2023 revealed no significant changes in a previously identified cyst of the left breast and no new suspicious findings in either breast (BI-RADS 2). Routine follow-up mammogram in 1 year is recommended. Examination today revealed no suspicious findings in either breast. I recommended follow-up examination in 6 months following this mammogram. Medications: Changed 2 From clonazepam 0.5 mg PO BID PRN 60 tabs 0RF anxiety 30 days To clonazepam 0.5 mg PO TID PRN Coding Level of Care Code Est Pt Level 3 (50262) Diagnoses At high risk for breast cancer Z91.89 Mastodynia of right breast N64.4
[2023-05-01 08:33] VITALS: BP 110/70; BMI 39.2
== END 2023-05-01 08:38 | disposition home or self-care (01) ==
PROVIDERS: PCP Internal Medicine; Visit Provider Surgery
DX: N64.4 Mastodynia (principal); Z91.89 Other specified personal risk factors, not elsewhere classified
CPT/HCPCS: 99213

== ENCOUNTER → 2023-05-01 08:19 | Outpatient (BNVA) | payer OTHER, SELFPAY | PROVIDERS: PCP Internal Medicine; Visit Provider Surgery | DX: N64.4 Mastodynia (principal); Z91.89 Other specified personal risk factors, not elsewhere classified | CPT/HCPCS: 99212 ==

== ENCOUNTER 2023-05-16 13:33 | Outpatient (AMB) | payer OTHER, SELFPAY ==
--- NOTE | 2023-05-16 13:36 | A.OFFVIS_ITS ---
Intake Vital Signs 05/16/23 13:38 Height 4 ft 11 in Weight 192 lb 3.889 oz BMI 38.8 BP 119/56 L Blood Pressure Location Lt brachial Position Sitting Pulse 84 Intake Visit Reasons: Colonoscopy Screening Intake Note: Patient in office today for colonoscopy screening. CC: Patient presents today with her cousin who states that the patient is doing well with medication. Crossbow Maker Required: Yes Crossbow Maker Name: [id number] Ruth Accompanied by: cousin Allergies No Known Allergies [No Known Allergies*] Allergy (Verified 05/16/23 13:45) Medication List - Last Reconciled 05/16/23 by Harriet Amin PA-C aspirin (Adult Aspirin Regimen) 81 mg PO DAILY 90 days atorvastatin 20 mg PO BEDTIME 90 days cholecalciferol (vitamin D3) 50 mcg PO DAILY 90 days clonazepam 0.5 mg PO TID PRN [diapers adult pull-ups As directed] divalproex 500 mg PO TID 90 days lactulose 10 grams (15 mL) PO BEDTIME PRN 30 days naproxen 500 mg PO BID 90 days omeprazole 20 mg PO DAILY 90 days oxybutynin chloride ER 10 mg PO DAILY 90 days phenobarbital 30 mg PO BEDTIME 90 days phenobarbital 60 mg PO DAILY 90 days phenytoin sodium extended 100 mg PO TID 90 days risperidone 1 mg PO BID 90 days sennosides (senna) 8.6 mg PO BEDTIME PRN 90 days sertraline 100 mg PO BID underpads (Maxicare Underpads) Use 1-3 bed pads at bedtime HPI HPI Comments History of Present Illness Details 58-year-old female referred for screenin g colonoscopy- her cousin/bookmobile driver is present-who speaks for her Via spanish interpreter device Patient is nonverbal, wheelchair assisted There are no GI complaints-taking PPI due to other medications Mother and M G mother had colon cancer She has not had any nausea, vomiting fever, chills, hematemesis or hematochezia [facility] Medical History Benign head tremor Wheelchair bound Mild recurrent major depression Constipation by delayed colonic transit At high risk for breast cancer Developmental anomaly GERD (gastroesophageal reflux disease) Shoulder pain Seizures Hypovitaminosis D Dyslipidemia Urinary incontinence Surgical History History of colonoscopy (01/25/16) History of shoulder surgery Family History Father Hypertension Prostate cancer Mother Stomach cancer Ovarian cancer Colon cancer Maternal Grandmother Breast cancer Colon cancer Stomach cancer Maternal Uncle Prostate cancer Maternal Aunt Stomach cancer Family/Other FH: mental illness Maternal Aunt History of throat cancer Social History (Updated 05/16/23 @ 13:56 by Harriet Amin PA-C) Household Members Other:: lives with cousin Housing: Apartment Alcohol intake: never Patient Tobacco Use Status: Never used Tobacco e-Cigarette/Vaping Use: Never Used Second Hand Smoke Exposure: No service: No Current occupational status: disabled Cognitive needs: Yes Hearing needs: No Vision needs: No Female Reproductive History Menstrual Age of Menarche: 11 Review of Systems Const All systems reviewed & are unremarkable except as noted in HPI and below Physical Exam Vital Signs: Last Vital Signs Pulse 84 05/16/23 13:38 BP 119/56 L 05/16/23 13:38 BMI result Body Mass Index 38.8 Non verbal- Const General: cooperative, comfortable and no acute distress Limitations: wheelchair Eyes Sclerae: sclerae normal Resp Effort & Inspection: normal respiratory effort Auscultation: clear to auscultation bilaterally and no wheezes Cardio Rate: regular rate Rhythm: regular rhythm Heart sounds: S1 normal heart sound present and S2 normal heart sound present GI Inspection: Yes obesity Palpation (GI): Soft to palpation and nontender Auscultation: normal bowel sounds Skin General skin exam: no rashes or lesions noted Neuro Other: head tremors Assessment & Plan Assessment & Plan (1) History of colon polyps: Code(s): Z86.010 - Personal history of colonic polyps (2) Family history of colon cancer in mother: Code(s): Z80.0 - Family history of malignant neoplasm of digestive organs (3) Constipation by delayed colonic transit: Code(s): K59.01 - Slow transit constipation Plan: Consistent bowel regimen Plan Cousin- present- pt non verbal colonoscopy MG prep needs spanish interpreter Orders: Orders Colonoscopy - GI Use Only 05/16/23 K59.01 - Slow transit constipation, Z80.0 - Family history of malignant neoplasm of digestive organs, Z86.010 - Personal history of colonic polyps Medications: New bisacodyl (Dulcolax (bisacodyl)) Day before procedure @ 12 noon Take 4 tablets by mouth followed by large glass of water 20 mg (4 x 5 mg) PO ONCE 1 day PRN 4 tabs 0RF colonoscopy prep Z12.11 - Encounter for screening for malignant neoplasm of colon polyethylene glycol 3350 (Miralax) Take as directed by mouth the day before your procedure. 238 grams PO ONCE 1 day 238 grams 0RF laxative effect Refilled lactulose 10 grams (15 mL) PO BEDTIME 30 days PRN 473 mL 2RF constipation K59.01 - Slow transit constipation omeprazole 20 mg PO DAILY 90 days 90 caps 3RF sennosides (senna) 8.6 mg PO BEDTIME 90 days PRN 90 caps 1RF constipation Patient Instructions: Polyp surveillance colonoscopy Consistent bowel regimen-increase week prior to prep day to ensure adequate prep Encouraged bookmobile driver to call with any questions or concerns Coding Level of Care Code New Pt Level 3 (41159) Diagnoses History of colon polyps Z86.010 Family history of colon cancer in mother Z80.0 Constipation by delayed colonic transit K59.01 Time Spent (min) 30 Comment [id number]
[2023-05-16 13:38] VITALS: BP 119/56; PULSE 84; BMI 38.8
== END 2023-05-16 14:29 | disposition home or self-care (01) ==
PROVIDERS: PCP Internal Medicine; Visit Provider Physician Assistant
DX: K59.01 Slow transit constipation (principal); Z12.11 Encounter for screening for malignant neoplasm of colon; Z86.010 Personal history of colon polyps; Z80.0 Family history of malignant neoplasm of digestive organs
CPT/HCPCS: 99203

== ENCOUNTER → 2023-05-16 13:33 | Outpatient (BNVA) | payer OTHER, SELFPAY | PROVIDERS: PCP Internal Medicine; Visit Provider Physician Assistant | DX: K59.01 Slow transit constipation (principal); Z80.0 Family history of malignant neoplasm of digestive organs; Z86.010 Personal history of colon polyps | CPT/HCPCS: 99202 ==

== ENCOUNTER 2023-05-24 14:43 | Outpatient (AMB) | payer OTHER, SELFPAY ==
--- NOTE | 2023-05-24 14:46 | A.OFFVIS_ITS ---
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 Accompanied by her guardian/cousin- Elizabet. She is doing well with no concerns. Attempting to eat a healthy diet with calcium and vitamin D. Disabled, uses a wheelchair. Currently not sexually active. Denies any vaginal dryness or irritation. Last pap smear; 2020. Last mammogram; 2023. Colonoscopy is UTD. Family history of breast, ovarian and colon cancer. [facility]LY [facility] Medical History Benign head tremor Wheelchair bound Mild recurrent major depression Constipation by delayed colonic transit At high risk for breast cancer Developmental anomaly GERD (gastroesophageal reflux disease) Shoulder pain Seizures Hypovitaminosis D Dyslipidemia Urinary incontinence Surgical History History of colonoscopy (01/25/16) History of shoulder surgery Family History Father Hypertension Prostate cancer Mother Stomach cancer Ovarian cancer Colon cancer Maternal Grandmother Breast cancer Colon cancer Stomach cancer Maternal Uncle Prostate cancer Maternal Aunt Stomach cancer Family/Other FH: mental illness Maternal Aunt History of throat cancer Social History Household Members Other:: lives with cousin Housing: Apartment Alcohol intake: never Patient Tobacco Use Status: Never used Tobacco e-Cigarette/Vaping Use: Never Used Second Hand Smoke Exposure: No service: No Current occupational status: disabled Cognitive needs: Yes Hearing needs: No Vision needs: No Female Reproductive History Menstrual Age of Menarche: 11 Total pregnancies: 0 Date of last pap smear: 03/03/20 (neg pap and hpv) Date of Mammogram: 04/18/23 (Birad 2) Review of Systems Const All systems reviewed & are unremarkable except as noted in HPI and below Reports as per HPI Eyes Reports no additional complaints ENT Reports no additional complaints Card Reports no additional complaints Resp Reports no additional complaints GI Reports as per HPI and Reports no additional complaints Reports as per HPI Musc Reports no additional complaints Skin/Breast Reports as per HPI Neuro Reports no additional complaints Psych Reports no additional complaints Endo Reports no additional complaints Trae/Lymph Reports no additional complaints Aller/Immun Reports no additional complaints Physical Exam Vital Signs: Last Vital Signs BP 120/66 05/24/23 14:48 BMI result Body Mass Index 38.8 Const General: cooperative, healthy appearing, no acute distress, well developed and alert Orientation/consciousness: patient oriented x3 HEENT Head: Yes normal to inspection Eyes General: appearance normal, both eyes and all related structures Neck Neck: Yes normal visual inspection Thyroid: Thyroid normal Chest Chest palpation & inspection: normal inspection of the chest and other (no puckering, dimpling, peau de orange, retraction, discharge, masses) Breast/axilla inspection: normal inspection of the breasts Breast/axilla palpation: normal palpation of the breasts Resp Effort & Inspection: normal respiratory effort GI Inspection: Yes normal to inspection and Yes obesity Palpation (GI): Soft to palpation Rectal Exam - Female: deferred General: Yes bladder normal to palpation External Female Exam: normal external appearance and normal appearance of the urethra Speculum Exam - Vagina: normal appearance of the vagina, normal palpation and normal vaginal discharge Speculum Exam - Cervix: normal appearance of the cervix and normal palpation Bimanual exam- vagina & uterus: normal bimanual exam, normal palpation, uterine size normal, bladder normal to palpation, normal palpation and non-tender Bimanual Exam- Adnexa, other: no masses and Other (Difficulty to outline due to body habitus) Skin General skin exam: no rashes or lesions noted Rashes: no rashes Neuro General: patient oriented x3 Cognition (Neuro): normal cognition Extrem General: Yes normal to inspection Psych Attitude: cooperative Thought process: Normal thought process present Assessment & Plan Assessment & Plan (1) Encounter for well woman exam with routine gynecological exam: Code(s): Z01.419 - Encounter for gynecological examination (general) (routine) without abnormal findings Plan Discussed: Current recommendations for pap smears per ASCCP guidelines. Breast awareness, periodic self breast exams and yearly mammogram. Maintain a healthy lifestyle, well balanced diet including Calcium 1,200 mg and Vitamin D 600 IU daily. Contact the office with any postmenopausal bleeding. Patient verbalizes understanding and agrees to the plan of care. She was given opportunity to ask questions and all questions were answered to the best of my ability. RTO in 2 year for annual high school special education teacher exam. This note is constructed using voice recognition software. While every effort has been made to ensure accuracy, used building materials yard worker errors may have been included. Coding Level of Care Code Est Pt Prev Care 40-64y(98758) Diagnoses Encounter for well woman exam with routine gynecological exam Z01.419
[2023-05-24 14:48] VITALS: BP 120/66; BMI 38.8
== END 2023-05-24 15:24 | disposition home or self-care (01) ==
LOC: HO.HWS 14:44
PROVIDERS: PCP Internal Medicine; Visit Provider Advanced Practice Midwife
DX: Z01.419 Encounter for gynecological examination (general) (routine) without abnormal findings (principal)
CPT/HCPCS: 99396

== ENCOUNTER → 2023-05-24 14:43 | Outpatient (BNVA) | payer OTHER, SELFPAY | PROVIDERS: PCP Internal Medicine; Visit Provider Advanced Practice Midwife ==

== ENCOUNTER 2023-07-24 13:20 | Outpatient (AMB) | payer OTHER, SELFPAY ==
--- NOTE | 2023-07-24 13:25 | A.OFFPC_ITS ---
Vital Signs 07/24/23 13:26 Height 4 ft 11 in Weight 191 lb BMI 38.6 BP 108/70 Blood Pressure Location Lt brachial Position Sitting Intake Visit Reasons: seizures Intake Note: patient here for a follow up Seizures Neuro Urologist Required: No Accompanied by: Cousin Allergies No Known Allergies [No Known Allergies*] Allergy (Verified 07/24/23 13:39) Medication List - Last Reconciled 07/24/23 by Cristina Chaidez MD aspirin (Adult Aspirin Regimen) 81 mg PO DAILY 90 days atorvastatin 20 mg PO BEDTIME 90 days bisacodyl (Dulcolax (bisacodyl)) 20 mg (4 x 5 mg) PO ONCE PRN 1 day cholecalciferol (vitamin D3) 50 mcg PO DAILY 90 days clonazepam 0.5 mg PO TID PRN [diapers adult pull-ups As directed] divalproex 500 mg PO TID 90 days lactulose 10 grams (15 mL) PO BEDTIME PRN 30 days naproxen 500 mg PO BID 90 days omeprazole 20 mg PO DAILY 90 days oxybutynin chloride ER 10 mg PO DAILY 90 days phenobarbital 30 mg PO BEDTIME 90 days phenobarbital 60 mg PO DAILY 90 days phenytoin sodium extended 100 mg PO TID 90 days polyethylene glycol 3350 (Miralax) 238 grams PO ONCE 1 day risperidone 1 mg PO BID 90 days sennosides (senna) 8.6 mg PO BEDTIME PRN 90 days sertraline 100 mg PO BID underpads (Maxicare Underpads) Use 1-3 bed pads at bedtime Tobacco use date assessed: 07/24/23 Dental Screening Dental Screen Date: 07/24/23 Did you have a dental visit in the last 12 months?: No Did you have a dental problem in the last 6 months where you did not have access to dental care?: No Was dental information given to patient?: Patient has dentist HPI HPI Comments History of Present Illness Details This is a 58-year-old female with GERD, dyslipidemia, seizures and mild recurrent major depression that comes accompanied by cousin which is her pallet rectifier for follow-up on her conditions. Currently in a wheelchair due to writing osteoarthritis and loss of balance. GERD stable with PPIs. On statins for her dyslipidemia and lipid panel will be ordered. Had a seizure last week and this is follow by Neurology. Depression has been well controlled with sertraline. [facility] Medical History (Updated 07/24/23 @ 14:27 by Cristina Chaidez MD) Morbid obesity with BMI of 40.0-44.9, adult Benign head tremor Wheelchair bound Mild recurrent major depression Constipation by delayed colonic transit At high risk for breast cancer Developmental anomaly GERD (gastroesophageal reflux disease) Shoulder pain Seizures Hypovitaminosis D Dyslipidemia Urinary incontinence Surgical History History of colonoscopy (01/25/16) History of shoulder surgery Family History Father Hypertension Prostate cancer Mother Stomach cancer Ovarian cancer Colon cancer Maternal Grandmother Breast cancer Colon cancer Stomach cancer Maternal Uncle Prostate cancer Maternal Aunt Stomach cancer Family/Other FH: mental illness Maternal Aunt History of throat cancer Social History Household Members Other:: lives with cousin Housing: Apartment Alcohol intake: never Patient Tobacco Use Status: Never used Tobacco e-Cigarette/Vaping Use: Never Used Second Hand Smoke Exposure: No service: No Current occupational status: disabled Cognitive needs: Yes Hearing needs: No Vision needs: No Female Reproductive History Menstrual Age of Menarche: 11 Questionnaire PHQ-9 Over the last 2 weeks, how often have you been bothered by any of the following problems? 1. Little interest or pleasure in doing things: several days 2. Feeling down, depressed, or hopeless: several days 3. Trouble falling or staying asleep, or sleeping too much: not at all 4. Feeling tired or having little energy: not at all 5. Poor appetite or overeating: not at all 6. Feeling bad about yourself - or that you are a failure or have let yourself or your family down: not at all 7. Trouble concentrating on things, such as reading the newspaper or watching television: not at all 8. Moving or speaking so slowly that other people could have noticed. Or the opposite - being so fidgety or restless that you have been moving around a lot more than usual: not at all 9. Thoughts that you would be better off or of hurting yourself in some way: not at all Total score: 2 Depression Screening Interpretation: Positive Depression Screening Follow-up: Existing condition, In treatment and Follow-up Visit Requested Depression Screening Done: Yes 30881 - PHQ-9 Billing: Yes Source: Developed by Drs. Dallas Noyola, Erin Gates, Farhad Cobb and colleagues, with an educational coleman from [employer]. Thrive Questionnaire Date Thrive assessed: 07/24/23 I am a: Parent/Caregiver What is your living situation today?: I have a steady place to live Within the past 12 months, did the food you bought not last and you didn't have the money to get more?: Never true Within the past 12 months, did you worry whether your food would run out before you got money to buy more?: Never true Do you have trouble paying for medicines?: No Do you have trouble getting transportation to medical appointments?: No Do you have trouble paying your heating and electricity bill?: No Do you have trouble taking care of your child, family member or friend?: No Do you have trouble with day-to-day activities such as bathing, preparing meals, shopping, managing finances, etc.?: No Are you currently unemployed and looking for a job?: No Are you interested in more education?: No Please select the resources that you would like help with: None Currently or been in a relationship where the following occur: no concerns reported THRIVE Score: 0 AUDIT C Alcohol Use Questionnaire (AUDIT-C) 1. How often do you have a drink containing alcohol?: Never Total Score: 0 Score Reviewed/Action Taken: No NORBERTO-7 AMB Questionnaire NORBERTO-7 Date NORBERTO - 7 assessed: 07/24/23 Feeling nervous, anxious, or on edge: 0 = Not at all Not being able to stop or control worryin = Not at all Worrying too much about different things: 0 = Not at all Trouble relaxin = Not at all Being so restless that it is hard to sit still: 0 = Not at all Becoming easily annoyed or irritable: 0 = Not at all Feeling afraid as if something awful might happen: 0 = Not at all Total NORBERTO-7 score (0-4 normal; 5-9 mild; 10-14 moderate; 15-21 severe): 0 Source: Developed by Erin Ro Kody, Farhad Cobb and colleagues, with an educational coleman from [employer]. NORBERTO-7 Assessment Billing NORBERTO-7 Assessment Tool: NORBERTO-7 Assessment 63567 Review of Systems Const All systems reviewed & are unremarkable except as noted in HPI and below Card Denies chest pain at rest, Denies chest pain with activity, Denies edema, Denies irregular heart rhythm, Denies claudication, Denies dyspnea, Denies dyspnea on exertion, Denies orthopnea, Denies paroxysmal nocturnal dyspnea and Denies slow heart rate Resp Denies cough, Denies dyspnea and Denies dyspnea on exertion GI Denies abdominal pain, Denies change in bowel habits, Denies excessive flatus, Denies nausea and Denies vomiting Denies urinary incontinence, Denies urinary hesitancy and Denies urinary urgency Musc Reports arthralgias and Reports muscle weakness Physical exam (Primary Care) Vital Signs: Last Vital Signs BP 108/70 07/24/23 13:26 BMI result Body Mass Index 38.6 BMI Assessment/Plan discussion: High BMI High, discussed plan: lifestyle, weight reduction, dietary and physical activity Tobacco/Smoking Status: Tobacco use Status Tobacco use date assessed 07/24/23 07/24/23 13:35 Patient Tobacco Use Status Never used Tobacco 07/24/23 13:31 e-Cigarette/Vaping Use Never Used 07/24/23 13:31 PHQ-9: PHQ-9 Score PHQ-9: Total score 2 07/24/23 13:43 Depression Screening Interpretation: Positive Depression Screening Follow-up: Existing condition, In treatment and Follow-up Visit Requested Thrive Assessment: Date of Thrive Assessment Date Thrive assessed 07/24/23 07/24/23 13:31 Currently or been in a relationship where the following occur: no concerns reported Const Nutritional Appearance: obese Limitations: wheelchair Resp Effort & Inspection: normal respiratory effort Auscultation: clear to auscultation bilaterally Cardio Jugular venous distension: no JVD Rate: regular rate Rhythm: regular rhythm Heart sounds: S1 normal heart sound present and S2 normal heart sound present Assessment and Plan Assessment & Plan (1) Mild recurrent major depression: Code(s): F33.0 - Major depressive disorder, recurrent, mild Plan: Continue sertraline. (2) Dyslipidemia: Code(s): E78.5 - Hyperlipidemia, unspecified Plan: Continue statins. Repeat lipid panel. Continue low-cholesterol diet. (3) Seizures: Code(s): R56.9 - Unspecified convulsions Plan: Continue divalproex and phenobarbital. Follow-up with Neurology. (4) GERD (gastroesophageal reflux disease): Code(s): K21.9 - Gastro-esophageal reflux disease without esophagitis Qualifiers: Esophagitis presence: esophagitis presence not specified Qualified Code(s): K21.9 - Gastro-esophageal reflux disease without esophagitis Plan: Continue PPIs. Orders: Orders Lipid Panel Today E78.5 - Hyperlipidemia, unspecified Vitamin D 25-OH Total Today E55.9 - Vitamin D deficiency, unspecified Complete Blood Count Auto Diff Today R56.9 - Unspecified convulsions Comprehensive [place]. Panel Fast Today R56.9 - Unspecified convulsions Medications: New [wheelchair foldable] As directed 1 ea 0RF M19.011 - Primary osteoarthritis, right shoulder, Q89.9 - Congenital malformation, unspecified, R56.9 - Unspecified convulsions Coding Level of Care Code Est Pt Level 4 (59508) Complex EM visit Add On G2211 Diagnoses Mild recurrent major depression F33.0 Dyslipidemia E78.5 Seizures R56.9 Gastroesophageal reflux disease, unspecified whether esophagitis present K21.9 Esophagitis presence: esophagitis presence not specified Additional Codes NORBERTO-7 Assessment Billing - NORBERTO-7 Assessment Tool: NORBERTO-7 Assessment 63027 ([id number]) Time Spent (min) 24
[2023-07-24 13:26] VITALS: BP 108/70; BMI 38.6
== END 2023-07-24 13:46 | disposition home or self-care (01) ==
PROVIDERS: PCP Internal Medicine; Visit Provider Internal Medicine
DX: R56.9 Unspecified convulsions (principal); F33.0 Major depressive disorder, recurrent, mild; E78.5 Hyperlipidemia, unspecified; K21.9 Gastro-esophageal reflux disease without esophagitis
CPT/HCPCS: 99214; G2211

== ENCOUNTER 2023-09-11 07:43 | Day surgery (SDC) | payer OTHER, SELFPAY ==
--- NOTE | 2023-09-10 11:54 | HO.ANESPROP2 ---
Documented by User: Ila Gamez NP 09/10/23 11:54 HPI - Anesthesia Eval Consult details Narrative: 58yo F for Colonoscopy PMFSH Active Problems Active Problems: All Active Problems Family history of colon cancer in mother (Acute) History of colon polyps (Acute) Screen for colon cancer (Acute) Intellectual disability (Acute) Toenail fungus (Acute) Adult general medical exam (Acute) Osteoarthritis of right shoulder (Acute) Benign head tremor (Acute) Wheelchair bound (Acute) Mastodynia of right breast (Acute) Mild recurrent major depression (Acute) Constipation by delayed colonic transit (Acute) At high risk for breast cancer (Acute) Dyslipidemia (Acute) Hypovitaminosis D (Acute) Seizures (Acute) Shoulder pain (Acute) GERD (gastroesophageal reflux disease) (Acute) Urinary incontinence (Acute) Developmental anomaly (Acute) Urinary incontinence (Acute) Past Medical History Medical History (Updated 07/24/23 @ 14:27 by Cristina Chaidez MD) Morbid obesity with BMI of 40.0-44.9, adult Benign head tremor Wheelchair bound Mild recurrent major depression Constipation by delayed colonic transit At high risk for breast cancer Developmental anomaly GERD (gastroesophageal reflux disease) Shoulder pain Seizures Hypovitaminosis D Dyslipidemia Urinary incontinence Family History Family History Father Hypertension Prostate cancer Mother Stomach cancer Ovarian cancer Colon cancer Maternal Grandmother Breast cancer Colon cancer Stomach cancer Maternal Uncle Prostate cancer Maternal Aunt Stomach cancer Family/Other FH: mental illness Maternal Aunt History of throat cancer Surgical History Surgical History History of colonoscopy (01/25/16) History of shoulder surgery Social History Social History Household Members Other:: lives with cousin Housing: Apartment Alcohol intake: never Patient Tobacco Use Status: Never used Tobacco e-Cigarette/Vaping Use: Never Used Second Hand Smoke Exposure: No Advance Directives: No Advance Directives Information Provided: Yes service: No Current occupational status: disabled Cognitive needs: Yes Hearing needs: No Vision needs: No Meds Allergies Allergy/AdvReac Type Severity Reaction Status Date / Time No Known Allergies Allergy Verified 09/11/23 08:09 [No Known Allergies*] Home Medications ?Medication ?Instructions ?Recorded ?Confirmed ?Last Taken ?Type clonazepam 0.5 mg tablet 0.5 mg PO TID PRN anxiety 05/01/23 09/11/23 Unknown History Assessment and Plan Assessment Anesthesia Assessment: Chart Reviewed Documented by User: Bailee Montaño MD 09/11/23 08:41 [facility] Past Medical History Medical History (Updated 07/24/23 @ 14:27 by Cristina Chaidez MD) Morbid obesity with BMI of 40.0-44.9, adult Benign head tremor Wheelchair bound Mild recurrent major depression Constipation by delayed colonic transit At high risk for breast cancer Developmental anomaly GERD (gastroesophageal reflux disease) Shoulder pain Seizures Hypovitaminosis D Dyslipidemia Urinary incontinence Family History Family History Father Hypertension Prostate cancer Mother Stomach cancer Ovarian cancer Colon cancer Maternal Grandmother Breast cancer Colon cancer Stomach cancer Maternal Uncle Prostate cancer Maternal Aunt Stomach cancer Family/Other FH: mental illness Maternal Aunt History of throat cancer Family history of problems with anesthesia: No Surgical History Surgical History History of colonoscopy (01/25/16) History of shoulder surgery History of Problems with Anesthesia: No Social History Social History Household Members Other:: lives with cousin Housing: Apartment Alcohol intake: never Patient Tobacco Use Status: Never used Tobacco e-Cigarette/Vaping Use: Never Used Second Hand Smoke Exposure: No Advance Directives: No Advance Directives Information Provided: Yes service: No Current occupational status: disabled Cognitive needs: Yes Hearing needs: No Vision needs: No Meds Allergies Allergy/AdvReac Type Severity Reaction Status Date / Time No Known Allergies Allergy Verified 09/11/23 08:09 [No Known Allergies*] Home Medications ?Medication ?Instructions ?Recorded ?Confirmed ?Last Taken ?Type clonazepam 0.5 mg tablet 0.5 mg PO TID PRN anxiety 05/01/23 09/11/23 Unknown History Exam Airway Mallampati Class: IV TM Dist: >3cm Neck ROM: Full Other: sp mandibula fx, asymmetrical maouth opening Assessment and Plan Assessment Anesthesia Assessment: Anesthesia Plan Discussed Final Anesthetic Review Family History of Problems with Anesthesia: No History of Problems with Anesthesia: No NPO: Yes ASA Class: III Final Preanesthetic Review: No Changes in Pt Med Stat, Meds/Allgs Chart Reviewed, Consent Obtained/Reviewed and Anes Risks/Benef Reviewed Patient Risk: Intermediate Procedure Risk: Low Anesthetic Plan Anesthetic Plan: TIVA Disposition: Standard PACU
[2023-09-11 08:14] VITALS: BP 141/84; PULSE 76; RESP 18; TEMP 36.1; O2SAT 95; BMI 38.2
--- NOTE | 2023-09-11 08:15 | P.HPSUR_ITS ---
Pre-Procedural Eval Section A - 24 Hr Update-Section A only Date of Service: 09/11/23 Section B - Complete if H&P > 30 days Chief Complaint: Slow transit constipation,hx colonic polyps, Relevant Family History (Specify if Yes): No Relevant Social History: None Present Medications: see Short Stay Collaborative assessment Medical History: Significant History (Morbid obesity with BMI of 40.0-44.9, adult Benign head tremor Wheelchair bound Mild recurrent major depression Constipation by delayed colonic transit At high risk for breast cancer Developmental anomaly GERD (gastroesophageal reflux disease) Shoulder pain Seizures Hypovitaminosis D Dyslipidemia Ur) History of Previous Operations: Relevant previous surgery/procedure and date(s) (History of colonoscopy (01/25/16) History of shoulder surgery) Allergies: Allergies Allergy/AdvReac Type Severity Reaction Status Date / Time No Known Allergies Allergy Verified 09/11/23 08:09 [No Known Allergies*] Review of Systems Sugical H&P ROS: Negative: Constitution, Cardiovascular, Respiratory, Neur ological, Psychiatric, Hem-Onc, Allergic/Immunologic, Gastrointestinal, Genitourinary, Musculoskeletal, Integumentary, Endocrine and Eyes/Ears/Nose/Throat Exam Surgical H&P Exam: Normal: HEENT, Normal: Heart, Normal: Lungs, Normal: Extremities, Normal: Abdomen and Normal: Skin and Significant Findings: Neurological (non verbal, limite dmobility) Plan Diagnosis/Plan: Unchanged I have reviewed the history and physical and performed a pertinent physical examination on my patient. No changes have occurred unless specified. Time Spent With Patient Time: Total time managing care of this patient today ____ minutes.
[2023-09-11 08:26] VITALS: BMI 38.4
[2023-09-11] MEDS: Lactated Ringers 1,000 ML 100 ML IVCONT (08:40)
--- NOTE | 2023-09-11 09:02 | HO.OPN-COLON ---
Colonoscopy Operative Note Operative Note Date of Service: 09/11/23 Narrative: Operative Information Procedure Description: Colonoscopy Indication: screening Anesthesia: MAC COLONOSCOPY Instrument: Olympus variable stiffness pediatric scope 190L Colonoscopy Monitoring: Vital signs and clinical assessment, continuous EKG monitoring, Pulse oximetry, Carbon Dioxide monitoring and blood pressure monitoring were done throughout the procedure. Colon withdrawal time was 6 minutes. Procedure: The patient was placed in the left lateral decubitis position and pre-procedure medications were administered. After a digital rectal examination of the ano-rectum, the video colonoscope was inserted into the rectum and advanced through the colon to the cecum/TI. The colonoscope was slowly withdrawn in a retrograde panoramic fashion and the colon mucosa was carefully examined including a retroflexed view of the rectum. Findings and interventions are described below. Procedure Difficulty: moderate Findings: Terminal Ileum-normal Cecum:normal Ascending Colon: normal Transverse Colon -normal Descending Colon:normal Sigmoid Colon: normal Rectum: Retroflexion with small internal hemorrhoids seen, grade I Anorectum - normal Intervention: none Colon preparation: [place] Bowel Preparation Scale Right colon; 2 Transverse colon: 2 Left colon; 2 (0 = Unprepared colon segment with mucosa not seen due to solid stool that cannot be cleared. 1 = Portion of mucosa of the colon segment seen, but other areas of the colon segment not well seen due to staining, residual stool and/or opaque liquid. 2 = Minor amount of residual staining, small fragments of stool and/or opaque liquid, but mucosa of colon segment seen well. 3 = Entire mucosa of colon segment seen well with no residual staining, small fragments of stool or opaque liquid) Impression and Post Procedure Diagnosis: internal hemorrhoids Plan: High fiber diet leaflet Avoid straining at stool, epsom salts and sitz bath, anusol supps or cream Repeat Colonoscopy in 10 years or earlier if clinically indicated Above findings were reviewed with the patient and relevant handouts were provided if indicated.
[2023-09-11 09:10] VITALS: BP 132/68; PULSE 71; RESP 16; TEMP 36.1; O2SAT 96
[2023-09-11 09:25] VITALS: BP 128/70; PULSE 69; RESP 18; TEMP 36.6; O2SAT 98
[2023-09-11 09:40] VITALS: BP 130/74; PULSE 71; RESP 16; TEMP 36.8; O2SAT 99
[2023-09-11 09:55] VITALS: BP 127/68; PULSE 73; RESP 18; TEMP 36.9; O2SAT 98
== END 2023-09-11 10:04 | disposition home or self-care (01) ==
PROVIDERS: PCP Internal Medicine; Visit Provider Internal Medicine Gastroenterology
PROC: 0DJD8ZZ Inspection of Lower Intestinal Tract, Via Natural or Artificial Opening Endoscopic (ICD-10-PCS; CPT 45378; principal; 2023-09-11 09:10)
DX: Z12.11 Encounter for screening for malignant neoplasm of colon (principal); Z86.010 Personal history of colon polyps; Z80.0 Family history of malignant neoplasm of digestive organs; K64.0 First degree hemorrhoids; K59.01 Slow transit constipation; G25.0 Essential tremor; R56.9 Unspecified convulsions; Q89.9 Congenital malformation, unspecified; E78.5 Hyperlipidemia, unspecified; E55.9 Vitamin D deficiency, unspecified; F33.0 Major depressive disorder, recurrent, mild; Z79.82 Long term (current) use of aspirin; E66.01 Morbid (severe) obesity due to excess calories; Z68.38 Body mass index [BMI] 38.0-38.9, adult; Z79.899 Other long term (current) drug therapy; Z79.1 Long term (current) use of non-steroidal anti-inflammatories (NSAID); Z99.3 Dependence on wheelchair
CPT/HCPCS: G0105; J2704

== ENCOUNTER → 2023-09-11 07:43 | Outpatient (BNV) | payer OTHER, SELFPAY | PROVIDERS: PCP Internal Medicine; Visit Provider Internal Medicine Gastroenterology | DX: Z12.11 Encounter for screening for malignant neoplasm of colon (principal); Z80.0 Family history of malignant neoplasm of digestive organs; K64.0 First degree hemorrhoids | CPT/HCPCS: G0105 ==

== ENCOUNTER 2023-10-30 14:58 | Outpatient (AMB) | payer OTHER, SELFPAY ==
--- NOTE | 2023-10-30 15:07 | A.OFFVIS_ITS ---
Vital Signs 3 10/30/23 15:18 Height 4 ft 11 in BP 160/67 H Blood Pressure Location Lt brachial Position Sitting Pulse 84 Intake Visit Reasons: 6 month follow up visit, breast examination Intake Note: Patient is seen in office for 6 month follow up visit, breast exam. Pt c/o: continued bilateral breast pain, worse in the right side radiates to the shoulder mm/us:04/18/23 Office System Analyst Required: No Career Manager: Career Manager Present Accompanied by: Self / Same As Patient Allergies No Known Allergies [No Known Allergies*] Allergy (Verified 10/30/23 15:18) Medication List - Last Reconciled 10/30/23 by Gustavo Corona MD aspirin (Adult Aspirin Regimen) 81 mg PO DAILY 90 days atorvastatin 20 mg PO BEDTIME 90 days cholecalciferol (vitamin D3) 50 mcg PO DAILY 90 days clonazepam 0.5 mg PO TID PRN [diapers adult pull-ups As directed] divalproex 500 mg PO TID 90 days lactulose 10 grams (15 mL) PO BEDTIME PRN 30 days naproxen 500 mg PO BID 90 days omeprazole 20 mg PO DAILY 90 days oxybutynin chloride ER 10 mg PO DAILY 90 days phenobarbital 30 mg PO BEDTIME 90 days phenobarbital 60 mg PO DAILY 90 days phenytoin sodium extended 100 mg PO TID 90 days risperidone 1 mg PO BID 90 days sennosides (senna) 8.6 mg PO BEDTIME PRN 90 days sertraline 100 mg PO BID underpads (Maxicare Underpads) Use 1-3 bed pads at bedtime [wheelchair foldable As directed] HPI Comments Details: 58-year-old female patient presenting with a history of a developmental anomaly and is mostly nonverbal returning today for routine high risk breast cancer examination. Her family history is significant for prostate cancer in her father and maternal uncle, colon cancer in her mother and maternal grandmother, ovarian cancer in her mother and maternal grandmother, breast cancer in her maternal grandmother, and stomach cancer in her mother.? The patient has never had breast problems or breast surgery. She does complain of bilateral breast pain but her mother feels it may be related to a seizure disorder. She is , postmenopausal, with no history of control use.? No previous genetic testing has been performed on any of her family members.? Her most recent mammogram and bilateral ultrasound dated 04/18/2023 revealed no mammographic evidence of malignancy. Ultrasound of the left breast revealed a 2 x 3 x 3 mm cyst with through transmission located in the 01:00 o'clock axis approximately 6 cm from the nipple. This remains unchanged since 09/17/2020. No further follow- up is recommended (mammogram BI-RADS 2, ultrasound BI-RADS 2). Her Tyrer-Cuzick model lifetime risk of breast cancer was previously calculated at 23 % putting her at high risk for breast cancer.? Patient is unable to tolerate breast MRIs. She denies any new breast symptoms in either breast. [facility] Medical History Morbid obesity with BMI of 40.0-44.9, adult Benign head tremor Wheelchair bound Mild recurrent major depression Constipation by delayed colonic transit At high risk for breast cancer Developmental anomaly GERD (gastroesophageal reflux disease) Shoulder pain Seizures Hypovitaminosis D Dyslipidemia Urinary incontinence Surgical History History of colonoscopy (01/25/16) History of shoulder surgery Family History Father Hypertension Prostate cancer Mother Stomach cancer Ovarian cancer Colon cancer Maternal Grandmother Breast cancer Colon cancer Stomach cancer Maternal Uncle Prostate cancer Maternal Aunt Stomach cancer Family/Other FH: mental illness Maternal Aunt History of throat cancer Social History Household Members Other:: lives with cousin Housing: Apartment Alcohol intake: never Patient Tobacco Use Status: Never used Tobacco e-Cigarette/Vaping Use: Never Used Second Hand Smoke Exposure: No service: No Current occupational status: disabled Cognitive needs: Yes Hearing needs: No Vision needs: No Female Reproductive History Menstrual Age of Menarche: 11 Review of Systems Const Unobtainable due to mental status Physical Exam Vital Signs: Last Vital Signs Pulse 84 10/30/23 15:18 BP 160/67 H 10/30/23 15:18 Const Other: Nonverbal and wheelchair, no acute distress, well nourished HEENT Head: Yes normocephalic and Yes atraumatic Neck Neck: Yes no lymphadenopathy Chest Other: Left breast: No skin change, no nipple retraction, no nipple discharge, area of thickening in the 1 o'clock position corresponding to the ultrasound findings of a simple cyst, no other palpable mass, no enlarged lymph nodes. Right breast: No skin change, no nipple retraction, no nipple discharge, no palpable mass, no enlarged lymph nodes Chest/axillae images: 2 1. Thickened area in the upper outer quadrant left breast as noted above consistent with a fibrocystic change, tender to palpation. Resp Other: Breathing comfortably on room air, no respiratory distress Skin Other: Warm, dry, no rash. Extrem General: Yes no clubbing, cyanosis or edema Assessment & Plan Assessment & Plan (1) At high risk for breast cancer: Code(s): Z91.89 - Other specified personal risk factors, not elsewhere classified Category: Medical (2) Mastodynia of right breast: Code(s): N64.4 - Mastodynia Category: Medical Plan 58-year-old female patient high risk for breast cancer with a Tyrer-Cuzi risk of score of 23% returning for six-month follow-up breast exam. Her most recent mammogram and ultrasound of 04/18/2023 revealed no significant changes in a previously identified cyst of the left breast and no new suspicious findings in either breast (BI-RADS 2). Routine follow-up mammogram in 1 year is recommended. Examination today revealed no suspicious findings in either breast. I recommended follow-up examination in 6 months following this mammogram. Coding Level of Care Code Est Pt Level 3 (18157) Diagnoses At high risk for breast cancer Z91.89 Mastodynia of right breast N64.4
[2023-10-30 15:18] VITALS: BP 160/67; PULSE 84
== END 2023-10-30 15:50 | disposition home or self-care (01) ==
PROVIDERS: PCP Internal Medicine; Visit Provider Surgery
DX: Z91.89 Other specified personal risk factors, not elsewhere classified (principal); N64.4 Mastodynia
CPT/HCPCS: 99213

== ENCOUNTER → 2023-10-30 14:58 | Outpatient (BNVA) | payer OTHER, SELFPAY | PROVIDERS: PCP Internal Medicine; Visit Provider Surgery | DX: N64.4 Mastodynia (principal); Z91.89 Other specified personal risk factors, not elsewhere classified | CPT/HCPCS: 99212 ==

== ENCOUNTER 2024-03-31 09:54 | Outpatient (REF) | payer OTHER, SELFPAY ==
--- OUTSIDE RECORDS SUMMARY | 2024-03-31 10:44 | XMS_ITS | Clinical Summary ---
Author Organization [address] [facility] Address [address] [place] [address] Phone Care Team Providers Care Conche Operator Name Role Phone Cristina Chaidez MD Primary Care Provider [phone] Allergies No known active allergies Medications silver sulfADIAZINE (SILVADENE, SSD) 1 % cream Apply small amount to the wound once daily before dressing with bandaid 3 Active ketoconazole (NIZORAL) 2 % cream APPLY CREAM TOPICALLY TO AFFECTED AREAS OF THE BOTTOM AND TOP OF FEET TWICE DAILY 3 Active aspirin (Vazalore) 81 mg capsule Take by mouth. Active atorvastatin (LIPITOR) 20 mg tablet Take 1 tablet (20 mg total) by mouth 1 (one) time each day. Active cholecalciferol (VITAMIN D-3) 50 mcg (2,000 unit) tablet Take by mouth. Active clonazePAM (KlonoPIN) 0.5 mg disintegrating tablet Take by mouth 2 times daily as needed. Active divalproex (DEPAKOTE) [address] tablet Take 1 Tablet by mouth 3 times daily. Active lactulose (CHRONULAC) solution Take 15 mL by mouth daily (with breakfast). Active naproxen (NAPROSYN) 500 mg tablet Take 1 Tablet by mouth 2 times daily (with meals). Active omeprazole (PriLOSEC) [address] capsule Take 1 capsule (20 mg total) by mouth 1 (one) time each day. Active oxyBUTYnin XL (DITROPAN-XL) 10 mg 24 hr tablet Take 1 tablet (10 mg total) by mouth 1 (one) time each day. Active PHENobarbitaL 30 mg tablet Take 1 tablet (30 mg total) by mouth 2 (two) times a day. Active phenytoin (DILANTIN) 100 mg ER capsule Take by mouth 3 times daily. Active senna (SENOKOT) 8.6 mg tablet Take 1 tablet (8.6 mg total) by mouth 1 (one) time each day. Active sertraline (ZOLOFT) 100 mg tablet Take 1 tablet (100 mg total) by mouth 1 (one) time each day. Active silver sulfADIAZINE (SSD) 1 % cream Apply topically 1 (one) time each day. 50 g 4 01/02/20 Active Active Problems Problem Noted Date Diagnosed Date Constipation by delayed colonic transit 03/15/19 GERD (gastroesophageal reflux disease) Mild recurrent major depression 03/15/2022 Seizures 03/15/2022 Shoulder pain 03/15/2022 Urinary incontinence 03/15/2022 Encounters Date Type Department Care Team Description 01/02/2024 3:00 PM EST Office Visit Orthopedic Surgery - [address] [address] Urban Epstein DPM Cellulitis of right foot (Primary Dx); Ingrowing right great toenail from Last 3 Months Surgical History Surgery Date Site/Laterality Comments COLONOSCOPY 01/25/2016 N/A PROCEDURE: HISTORICAL COLONOSCOPY SHOULDER SURGERY N/A PROCEDURE: HISTORICAL SHOULDER SURGERY Social History Tobacco Use Types Packs/Day Years Used Date Smoking Tobacco: Never Smokeless Tobacco: Never Tobacco Cessation:Counseling Given: Not Answered Alcohol Use Standard Drinks/Week Comments Never 0 (1 standard drink = 0.6 oz pur e alcohol) Comments Unknown Sex and Gender Information Value Date Recorded Sex Assigned at Not on file Legal Sex Female 8:20 PM EST Gender Identity Not on file Sexual Orientation Not on file Obstetrics History Last Filed Vital Signs Vital Sign Reading Time Taken Comments Blood Pressure - - Pulse - - Temperature - - Respiratory Rate - - Oxygen Saturation - - Inhaled Oxygen Concentration - - Weight 89.8 kg (198 lb) 01/02/2024 3:20 PM EST Height 149.9 cm (4' 11.02 ) 01/02/2024 3:[address] Body Mass Index 39.97 01/02/2024 3:20 PM EST Plan of Treatment Health Maintenance Due Date Last Done Comments Breast Cancer Screening 1965 Cervical Cancer Screening: Pap Smear 1985 Pneumococcal Vaccine: 50+ Years (1 of 1 - PCV) 2014 Zoster Vaccines (1 of 2) 2014 DTaP,Tdap,and Td Vaccines (3 - Td or Tdap) 09/22/2016 03/25/2016, 01/03/2016 Cholesterol Screening (Lipid Panel) 03/15/2023 Colorectal Cancer Screening: Colonoscopy 03/15/2023 Depression Screening 03/15/2023 HIV Screening 03/15/2023 Hepatitis C Screening 03/15/2023 Medicare Annual Wellness Visit 03/15/2023 Social Influencers of Health Screening 03/15/2023 COVID-19 Vaccine ( - season) 2023 Influenza Vaccine (#1) 2023 , 04/03/2019, 01/07/2018, Additional history exists RSV Immunization Patients 60+ Years Old (1 - 1-dose 75+ series) 2039 HIB Vaccines Aged Out No longer eligi ble based on patient's age to complete this topic HPV Vaccines Aged Out No longer eligi ble based on patient's age to complete this topic Hepatitis A Vaccines Aged Out No long er eligible based on patient's age to complete this topic Hepatitis B Vaccines Aged Out No long er eligible based on patient's age to complete this topic IPV Vaccines Aged Out No longer eligi ble based on patient's age to complete this topic MMR Vaccines Aged Out No longer eligi ble based on patient's age to complete this topic Meningococcal ACWY Vaccine Aged Out N o longer eligible based on patient's age to complete this topic Meningococcal B Vacine Aged Out No lo nger eligible based on patient's age to complete this topic Pneumococcal Vaccine: Pediatrics (0 to 5 Years) and At-Risk Patients (6 to 64 Years) Aged Out No longer eligible based on patient's age to complete this topic RSV Immunization Patients Under 20 months Aged Out No longer eligible based on patient's age to complete this topic Varicella Vaccines Aged Out No longer eligible based on patient's age to complete this topic Insurance [facility] MEDICARE Member Subscriber Plan / Payer (Ef fective 2018-Present) Name:Cristina Wagoner Relation to Subscriber:Self Name:Cristina Wagoner Payer ID:[id number] Group ID:[id number] Type:Not on file Address: [facility] [address] [address] Care Teams Conche Operator Relationship Specialty Start Date End Date Cristina Chaidez MD 2 [facility] , [address] Physician Associ D/B/A: [facility] MIKAELA Escobedo PCP - General 01/06/22
[2024-03-31 10:57] LABS: Basophils Percent Auto 0.5 % (0-2); Eosinophils Absolute Auto 0.1 X10*3/uL (0.0-0.4); Eosinophils Percent Auto 0.6 % (0-4); Hematocrit 40.2 % (37.0-47.0); Hemoglobin 13.7 g/dl (12.0-16.0); Imm Gran Abs Auto 0.02 X10*3/uL (0.00-0.03); Imm Gran Pct Auto 0.3 % (0.0-0.4); Lymphocytes Absolute Auto 3.4 X10*3/uL (1.2-4.9); Lymphocytes Percent Auto 43.1 % (20-40); MANUAL DIFF FLAG SCAN; Mean Corpuscular HGB Conc 34.1 g/dl (31.0-35.0); Mean Corpuscular Volume 99.8 fL (80.0-98.0); Monocytes Absolute Auto 0.8 X10*3/uL (0.1-1.2); Monocytes Percent Auto 10.3 % (2-11); Neutrophils Absolute Auto 3.6 x10*3/uL (2.0-8.3); Neutrophils Percent Auto 45.2 % (45-73); PLT CLUMP 1; Red Blood Count 4.03 X10*6/uL (4.20-5.50); Red Cell Distribution Width 12.9 % (11.0-16.0); SCAN SMEAR FLAG 1
[2024-03-31 11:08] LABS: White Blood Count 7.9 X10*3/uL (4.8-10.8)
[2024-03-31 11:09] LABS: SLIDE REVIEW VERIFIED
== END 2024-03-31 09:55 | disposition home or self-care (01) ==
LOC: HO.LAB 09:54
PROVIDERS: PCP Internal Medicine; Visit Provider Internal Medicine
DX: R56.9 Unspecified convulsions (principal)
CPT/HCPCS: 36415; 85025

== ENCOUNTER 2024-04-02 12:48 | Outpatient (AMB) | payer OTHER, SELFPAY ==
--- NOTE | 2024-04-02 12:57 | MHC.PC.OV ---
Vital Signs 04/02/24 13:05 Height 4 ft 11 in Weight 179 lb 3.773 oz BMI 36.2 BP 126/72 Blood Pressure Location Rt brachial Position Sitting Intake Visit Reasons: Annual Exam Intake Note: Patient here for an annual physical exam Identity Management Consultant Required: Yes Identity Management Consultant Language: Mystery Shopper Name: Cristina Chaidez MD Information Interpreted: non-clinical & clinical Accompanied by: Family/Other Allergies No Known Allergies [No Known Allergies*] Allergy (Verified 04/02/24 13:23) Medication List - Last Reconciled 04/02/24 by Cristina Chaidez MD aspirin (Adult Aspirin Regimen) 81 mg PO DAILY 90 days atorvastatin 20 mg PO BEDTIME 90 days cholecalciferol (vitamin D3) 50 mcg PO DAILY 90 days clonazepam 0.5 mg PO TID PRN [diapers adult pull-ups As directed] divalproex 500 mg PO TID 90 days lactulose 10 grams (15 mL) PO BEDTIME PRN 30 days naproxen 500 mg PO BID 90 days omeprazole 20 mg PO DAILY 90 days oxybutynin chloride ER 10 mg PO DAILY 90 days phenobarbital 30 mg PO BEDTIME 90 days phenobarbital 60 mg PO DAILY 90 days phenytoin sodium extended 100 mg PO TID 90 days risperidone 1 mg PO BID 90 days sennosides (senna) 8.6 mg PO BEDTIME PRN 90 days sertraline 100 mg PO BID underpads (Maxicare Underpads) Use 1-3 bed pads at bedtime [wheelchair foldable As directed] Tobacco use date assessed: 04/02/24 Dental Screening Dental Screen Date: 04/02/24 Did you have a dental visit in the last 12 months?: No Did you have a dental problem in the last 6 months where you did not have access to dental care?: No Was dental information given to patient?: Patient has dentist HPI HPI Comments History of Present Illness Details The patient is a 59-year-old female presenting for her annual physical examination. She is diagnosed with hyperlipidemia and is currently taking atorvastatin for management. Her medication regimen also includes aspirin, vitamin D, clonazepam, divalproex, lactulose, and naproxen on an as-needed basis. She is on omeprazole for GERD, oxybutynin for bladder control, sertralina for managing her depression with anxiety, and a combination of phenobarbital, phenytoin, and risperidone for seizure disorder. The patient has a history of shoulder surgery. Recently, she underwent a colonoscopy in 2023, which yielded normal results. She reports significant leg weakness and back pain when ambulating, which also impacts her ability to walk without assistance. Due to this, she utilizes a wheelchair. There is a family history of colon, ovarian, and prostate cancer as well as hypertension. She denies smoking and alcohol consumption. - Tetanus vaccine: Received in 2016, valid until 2026. - Mammogram: Last performed the previous year; follow-up with breast surgeon imminent. - Colonoscopy: Completed in 2023 with normal results. - Influenza vaccine: Believed to have been administered, pending confirmation. - Bone density screening recommended but not yet performed. - Discussed potential need for mobility aids like a portable wheelchair. [facility] Medical History Morbid obesity with BMI of 40.0-44.9, adult Benign head tremor Wheelchair bound Mild recurrent major depression Constipation by delayed colonic transit At high risk for breast cancer Developmental anomaly GERD (gastroesophageal reflux disease) Shoulder pain Seizures Hypovitaminosis D Dyslipidemia Urinary incontinence Surgical History History of colonoscopy (01/25/16) History of shoulder surgery Family History Father Hypertension Prostate cancer Mother Stomach cancer Ovarian cancer Colon cancer Maternal Grandmother Breast cancer Colon cancer Stomach cancer Maternal Uncle Prostate cancer Maternal Aunt Stomach cancer Family/Other FH: mental illness Maternal Aunt History of throat cancer Social History Household Members Other:: lives with cousin Housing: Apartment Alcohol intake: never Patient Tobacco Use Status: Never used Tobacco e-Cigarette/Vaping Use: Never Used Second Hand Smoke Exposure: No service: No Current occupational status: disabled Cognitive needs: Yes Hearing needs: No Vision needs: No Female Reproductive History Menstrual Age of Menarche: 11 Questionnaire PHQ-9 Over the last 2 weeks, how often have you been bothered by any of the following problems? 1. Little interest or pleasure in doing things: several days 2. Feeling down, depressed, or hopeless: several days 3. Trouble falling or staying asleep, or sleeping too much: not at all 4. Feeling tired or having little energy: not at all 5. Poor appetite or overeating: not at all 6. Feeling bad about yourself - or that you are a failure or have let yourself or your family down: not at all 7. Trouble concentrating on things, such as reading the newspaper or watching television: several days 8. Moving or speaking so slowly that other people could have noticed. Or the opposite - being so fidgety or restless that you have been moving around a lot more than usual: not at all 9. Thoughts that you would be better off or of hurting yourself in some way: not at all Total score: 3 Depression Screening Interpretation: Positive Depression Screening Follow-up: Existing condition, In treatment and Follow-up Visit Requested Depression Screening Done: Yes 02398 - PHQ-9 Billing: Yes Source: Developed by Drs. Dallas Noyola, Erin Gates, Farhad Cobb and colleagues, with an educational coleman from [email or web address]. Thrive Questionnaire Date Thrive assessed: 04/02/24 I am a: Patient What is your living situation today?: I have a steady place to live Within the past 12 months, did the food you bought not last and you didn't have the money to get more?: Never true Within the past 12 months, did you worry whether your food would run out before you got money to buy more?: Never true Do you have trouble paying for medicines?: No Do you have trouble getting transportation to medical appointments?: No Do you have trouble paying your heating and electricity bill?: No Do you have trouble taking care of your child, family member or friend?: I choose not to answer this question Do you have trouble with day-to-day activities such as bathing, preparing meals, shopping, managing finances, etc.?: I choose not to answer this question Are you currently unemployed and looking for a job?: I choose not to answer this question Are you interested in more education?: I choose not to answer this question Please select the resources that you would like help with: None Currently or been in a relationship where the following occur: No concerns reported THRIVE Score: 0 AUDIT C Alcohol Use Questionnaire (AUDIT-C) 1. How often do you have a drink containing alcohol?: Never Total Score: 0 Score Reviewed/Action Taken: No NORBERTO-7 AMB Questionnaire NORBERTO-7 Date NORBERTO - 7 assessed: 04/02/24 Feeling nervous, anxious, or on edge: 1 = Several days Not being able to stop or control worryin = Not at all Worrying too much about different things: 1 = Several days Trouble relaxin = Several days Being so restless that it is hard to sit still: 0 = Not at all Becoming easily annoyed or irritable: 0 = Not at all Feeling afraid as if something awful might happen: 0 = Not at all Total NORBERTO-7 score (0-4 normal; 5-9 mild; 10-14 moderate; 15-21 severe): 3 Source: Developed by Drs. Dallas Noyola, Erin Gates, Farhad Cobb and colleagues, with an educational colmean from [email or web address]. NORBERTO-7 Assessment Billing NORBERTO-7 Assessment Tool: NORBERTO-7 Assessment 65596 Review of Systems Const All systems reviewed & are unremarkable except as noted in HPI and below Card Denies chest pain at rest, Denies chest pain with activity, Denies edema, Denies irregular heart rhythm, Denies claudication, Denies dyspnea, Denies dyspnea on exertion, Denies orthopnea, Denies paroxysmal nocturnal dyspnea and Denies slow heart rate Resp Denies cough, Denies dyspnea and Denies dyspnea on exertion GI Denies abdominal pain, Denies change in bowel habits, Denies excessive flatus, Denies nausea and Denies vomiting Neuro Denies behavioral changes and Denies lack of coordination Psych Denies behavioral changes Physical exam (Primary Care) Vital Signs: Last Vital Signs BP 126/72 04/02/24 13:05 BMI result Body Mass Index 36.2 BMI Assessment/Plan discussion: High BMI High, discussed plan: lifestyle, weight reduction, dietary and physical activity Tobacco/Smoking Status: Tobacco use Status Tobacco use date assessed 04/02/24 04/02/24 13:02 Patient Tobacco Use Status Never used Tobacco 04/02/24 13:02 e-Cigarette/Vaping Use Never Used 04/02/24 13:02 PHQ-9: PHQ-9 Score PHQ-9: Total score 3 04/02/24 13:28 Depression Screening Interpretation: Positive Depression Screening Follow-up: Existing condition, In treatment and Follow-up Visit Requested Thrive Assessment: Date of Thrive Assessment Date Thrive assessed 04/02/24 04/02/24 13:02 Currently or been in a relationship where the following occur: No concerns reported Const Limitations: wheelchair HENMT Head: Yes normal to inspection, Yes normocephalic and Yes atraumatic Ears: external ears normal Eyes General: appearance normal, both eyes and all related structures Eyelids: Yes eyelids normal Conjunctivae: conjunctivae normal Neck Neck: Yes normal visual inspection and Yes supple Resp Effort & Inspection: normal respiratory effort Auscultation: clear to auscultation bilaterally Cardio Jugular venous distension: no JVD Rate: regular rate Rhythm: regular rhythm Heart sounds: S1 normal heart sound present and S2 normal heart sound present GI Inspection: Yes normal to inspection Palpation (GI): Soft to palpation and nontender Auscultation: normal bowel sounds Skin General skin exam: no rashes or lesions noted Coding Level of Care Code Est Pt Prev Care 40-64y(80083) Diagnoses Adult general medical exam Z00.00 Mild recurrent major depression F33.0 Seizures R56.9 Additional Codes NORBERTO-7 Assessment Billing - NORBERTO-7 Assessment Tool: NORBERTO-7 Assessment 32530 ([id number]) PHQ-9 - 36835 - PHQ-9 Billing: Yes ([id number]) Time Spent (min) 33 Assessment & Plan Assessment & Plan (1) Adult general medical exam: Code(s): Z00.00 - Encounter for general adult medical examination without abnormal findings Category: Medical (2) Mild recurrent major depression: Code(s): F33.0 - Major depressive disorder, recurrent, mild Category: Medical (3) Seizures: Code(s): R56.9 - Unspecified convulsions Category: Medical Plan - Continue current medication regimen for hyperlipidemia, seizure disorder, depression, GERD, and bladder control. - Follow up with a breast surgeon regarding mammography and assess for any changes. - Monitor leg weakness and back pain; consider physical therapy or additional mobility support. - Consider bone density screening due to age and menopausal status. - Encourage regular follow-up with neurology for seizure disorder management. - Dietary and lifestyle modifications discussed to minimize further complications from chronic conditions. Patient was informed and verbally consented to the use of an ambient scribe for clinic note documentation during this visit. During our visit, we discussed the ongoing management of hyperlipidemia, seizure disorder, and depression with anxiety. The patient was advised to continue her current medication regimen. We reviewed her recent laboratory results and noted that her ongoing issues of leg weakness and back pain require further evaluation. A future bone density screening was recommended given her post-menopausal status. We discussed her adherence to prescribed medications, preventive measures like vaccination, and addressed any concerns regarding her family history of cancers and hypertension. Ongoing coordination with her neurologist and potential updates on her mammogram were emphasized. Orders: Orders Lipid Panel 6 Months E78.5 - Hyperlipidemia, unspecified Comprehensive [place]. 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 - Schedule and attend a follow-up appointment with the breast surgeon. - Monitor and report changes in leg weakness or back pain. - Confirm receipt of influenza vaccine if not already obtained. - Discuss with family or health care provider about bone density screening. - Maintain regular appointments with neurology and other specialists as advised.
[2024-04-02 13:05] VITALS: BP 126/72; BMI 36.2
--- OUTSIDE RECORDS SUMMARY | 2024-04-02 14:11 | XMS_ITS | Clinical Summary ---
Author Organization 175 [facility] Address [address] [place] [address] Phone Care Team Providers Care Electronic Warfare Technician Name Role Phone Cristina Chaidez MD Primary Care Provider [phone] Allergies No known active allergies Medications silver [...] PM EST Office Visit Orthopedic Surgery - [address] [address] Urban Epstein DPM Cellulitis of [...] patient's age to complete this topic Insurance [facility] MEDICARE Member Subscriber Plan / Payer (Ef fective 2018-Present) Name:Cristina Wagoner Relation to Subscriber:Self Name:Cristina Wagoner Payer ID:[id number] Group ID:[id number] Type:Not on file Address: [facility] [address] [address] Care Teams Electronic Warfare Technician Relationship Specialty Start Date End Date Cristina Chaidez MD 2 [facility] , [address] Physician Associ D/B/A: [facility] MIKAELA Escobedo PCP - General 01/06/22
== END 2024-04-02 13:36 | disposition home or self-care (01) ==
PROVIDERS: PCP Internal Medicine; Visit Provider Internal Medicine
DX: Z00.00 Encounter for general adult medical examination without abnormal findings (principal); F33.0 Major depressive disorder, recurrent, mild; R56.9 Unspecified convulsions

== ENCOUNTER → 2024-04-02 12:48 | Outpatient (BNVA) | payer OTHER, SELFPAY | PROVIDERS: PCP Internal Medicine; Visit Provider Internal Medicine | DX: Z00.00 Encounter for general adult medical examination without abnormal findings (principal); F33.0 Major depressive disorder, recurrent, mild; R56.9 Unspecified convulsions | CPT/HCPCS: 96127; 99396 ==

== ENCOUNTER 2024-05-19 14:37 | Outpatient (REF) | payer OTHER, SELFPAY ==
--- OUTSIDE RECORDS SUMMARY | 2024-05-19 16:32 | XMS_ITS | Clinical Summary ---
Author Organization 175 [facility] Address [address] [place] [address] Phone Care Team Providers Care Science Teacher Name Role Phone Cristina Chaidez MD Primary Care Provider [phone] Allergies No known active allergies Medications silver [...] time each day. 50 g 4 01/02/20 25 Active Active Problems Problem Noted Date Diagnosed Date Constipation by delayed colonic transit 03/15/19 GERD (gastroesophageal reflux disease) Mild recurrent major depression 03/15/2022 Seizures 03/15/2022 Shoulder pain 03/15/2022 Urinary incontinence 03/15/2022 Surgical History Surgery Date Site/Laterality Comments COLONOSCOPY [...] 2014 Zoster Vaccines (1 of 2) 2014 Cholesterol Screening (Lipid Panel) 03/15/2023 Colorectal Cancer Screening: Colonoscopy 03/15/2023 Depression Screening 03/15/2023 HIV Screening 03/15/2023 Hepatitis C Screening 03/15/2023 Medicare Annual Wellness Visit 03/15/2023 Social Influencers of Health Screening 03/15/2023 COVID-19 Vaccine ( season) 2023 Influenza Vaccine (#1) 2023 2, 04/03/2019, 01/07/2018, Additional history exists DTaP,Tdap,and Td Vaccines (3 - Td or Tdap) 03/25/2026 03/25/2016, 01/03/2016 RSV Immunization Patients 60+ Years Old (1 [...] patient's age to complete this topic Insurance [facility] MEDICARE Member Subscriber Plan / Payer (Ef fective 2018-Present) Name:Cristina Wagoner Relation to Subscriber:Self Name:Cristina Wagoner Payer ID:[id number] Group ID:[id number] Type:Not on file Address: [facility] [address] [address] Care Teams Science Teacher Relationship Specialty Start Date End Date Cristina hCaidez MD 2 [facility] , [address] [facility] Physician Associ D/B/A: [facility] MIKAELA Escobedo PCP - General 01/06/22
== END 2024-05-19 14:38 | disposition home or self-care (01) ==
LOC: HO.MAMMO 14:37
PROVIDERS: PCP Internal Medicine; Visit Provider Internal Medicine
DX: Z12.31 Encounter for screening mammogram for malignant neoplasm of breast (principal)
CPT/HCPCS: 77063; 77067

== ENCOUNTER → 2024-05-19 14:45 | Outpatient (BNV) | payer OTHER, SELFPAY | PROVIDERS: PCP Internal Medicine; Visit Provider Internal Medicine | DX: Z12.31 Encounter for screening mammogram for malignant neoplasm of breast (principal) | CPT/HCPCS: 77063; 77067 ==

== ENCOUNTER 2024-07-21 11:18 | Outpatient (AMB) | payer OTHER, SELFPAY ==
[2024-07-21 11:26] VITALS: BMI 36.1
--- NOTE | 2024-07-21 11:26 | A.OFFVIS_ITS ---
Vital Signs 07/21/24 11:26 Height 4 ft 11 in Weight 179 lb BMI 36.1 Intake Visit Reasons: Inj-Rt. Shoulder Pain last inj 05/15/22 Intake Note: Cristina is a 57 year old right hand dominant female who presents today for a follow up of her right shoulder pain. Last injection was administered on 05/15/22. Patient states that this injection was helpful however she explains that she did have some residual pain in the shoulder that radiated to the elbow. she would like to repeat injection today. Pediatric Clinical Dietician Services: Pediatric Clinical Dietician Offered & Declined (Daughter) Accompanied by: Daughter Allergies No Known Allergies [No Known Allergies*] Allergy (Verified 04/02/24 13:23) HPI HPI Inj-Rt. Shoulder Pain last inj 05/15/22: Details: Cristina is a 57 year old right hand dominant female who presents today for a follow up of her right shoulder pain. Last injection was administered on 05/15/22. Patient states that this injection was helpful however she explains that she did have some residual pain in the shoulder that radiated to the elbow. she would like to repeat injection today. She is here today with a caregiver. She is developmentally delayed. Given her injections in the past and they seem beneficial. [facility] Medical History Morbid obesity with BMI of 40.0-44.9, adult Benign head tremor Wheelchair bound Mild recurrent major depression Constipation by delayed colonic transit At high risk for breast cancer Developmental anomaly GERD (gastroesophageal reflux disease) Shoulder pain Seizures Hypovitaminosis D Dyslipidemia Urinary incontinence Surgical History History of colonoscopy (01/25/16) History of shoulder surgery Family History Father Hypertension Prostate cancer Mother Stomach cancer Ovarian cancer Colon cancer Maternal Grandmother Breast cancer Colon cancer Stomach cancer Maternal Uncle Prostate cancer Maternal Aunt Stomach cancer Family/Other FH: mental illness Maternal Aunt History of throat cancer Social History Household Members Other:: lives with cousin Housing: Apartment Alcohol intake: never Patient Tobacco Use Status: Never used Tobacco e-Cigarette/Vaping Use: Never Used Second Hand Smoke Exposure: No service: No Current occupational status: disabled Cognitive needs: Yes Hearing needs: No Vision needs: No Female Reproductive History Menstrual Age of Menarche: 11 Physical Exam Vital Signs: BMI result Body Mass Index 36.1 Const General: no acute distress and alert Orientation/consciousness: patient oriented x3 Neuro General: patient oriented x3 Extrem Other: Right Shoulder: Skin C/D/I + Rod & Neer AB 90 degrees, she can get her hand to her mouth Office Procedures Joint Inj/Aspir; Non-Pain Clin Joint Injection/Drain Details: Injected 1 mL of Decadron and 3 mL 1% lidocaine and 3 mL of 0.25% Marcaine. Site was prepped using aseptic technique. Patient tolerated the procedure well. Shoulders, Hips, Knees, Shoulder Injection Large joint : Right Shoulder Coding Procedure code (CPT) selection complete Assessment & Plan Assessment & Plan (1) Osteoarthritis of right shoulder: Code(s): M19.011 - Primary osteoarthritis, right shoulder Category: Medical Plan: Patient benefits from subacromial injections periodically. I injected her right shoulder today. She can follow up as needed. Coding Level of Care Code Est Pt Level 3 (40665) Diagnoses Osteoarthritis of right shoulder M19.011 CPT Codes Shoulders, Hips, Knees, - Shoulder Injection Large joint : Right Shoulder ([id number])
--- OUTSIDE RECORDS SUMMARY | 2024-07-21 12:37 | XMS_ITS | Clinical Summary ---
Author Organization 175 [facility] Address [address] [place] [address] Phone Care Team Providers Care Tube Building Machine Operator Name Role Phone Cristina Chaidez MD Primary Care Provider [phone] Allergies No known active allergies Medications silver [...] (gastroesophageal reflux disease) Mild recurrent major depression (CMS/HCC V24) Seizures (CMS/HCC V24, CMS/HCC V28) 03/15/2022 Shoulder pain 03/15/2022 Urinary incontinence 03/15/2022 [...] Screening 03/15/2023 COVID-19 Vaccine ( season) 2023 RSV Immunization Adult Patients (1 - Risk 60-74 years 1-dose series) 2024 Influenza Vaccine (Season Ended) 2024 12/28/2021, 04/03/2019, 01/07/2018, Additional history exists DTaP,Tdap,and Td Vaccines (3 - Td or Tdap) 03/25/2026 03/25/2016, 01/03/2016 HIB Vaccines Aged Out No longer eligi [...] age to complete this topic Meningococcal B Vaccine Aged Out No l onger eligible based on patient's age to complete [...] [facility] MEDICARE Member Subscriber Plan / Payer (Ef fective 2018-Present) Name:Cristina Wagoner Relation to Subscriber:Self Name:Cristina Wagoner Payer ID:[id number] Group ID:[id number] Type:Not on file Address: [address] [place] [address] Care Teams Tube Building Machine Operator Relationship Specialty Start Date End Date Cristina Chaidez MD 2 [facility] , [address] Physician Associ D/B/A: [facility] MIKAELA Escobedo PCP - General 01/06/22
== END 2024-07-21 13:12 | disposition home or self-care (01) ==
LOC: HO.HOS 11:19
PROVIDERS: PCP Internal Medicine; Visit Provider Orthopaedic Surgery
DX: M19.011 Primary osteoarthritis, right shoulder (principal)
CPT/HCPCS: 20610; 99213

== ENCOUNTER → 2024-07-21 11:18 | Outpatient (BNVA) | payer OTHER, SELFPAY | PROVIDERS: PCP Internal Medicine; Visit Provider Orthopaedic Surgery | DX: M19.011 Primary osteoarthritis, right shoulder (principal) | CPT/HCPCS: 20610; 99212; J0665; J1100; J2003 ==

== ENCOUNTER 2024-08-04 14:06 | Outpatient (AMB) | payer OTHER, SELFPAY ==
--- NOTE | 2024-08-04 13:06 | MHC.OFFVIS ---
Vital Signs 08/04/24 14:14 Height 4 ft 11 in Weight 180 lb 12.465 oz BMI 36.5 BP 110/57 L Blood Pressure Location Lt brachial Position Sitting Pulse 73 Intake Visit Reasons: 6 month follow up visit, breast examination Intake Note: Patient is seen in office for 6 month follow up visit, breast exam. Pt c/o: denies any concerns at the time of visit mm:05/19/24 Cat Scan Tech Required: No Structural Steel Worker Helper: Structural Steel Worker Helper Present Accompanied by: Self / Same As Patient Allergies No Known Allergies [No Known Allergies*] Allergy (Verified 08/04/24 14:07) HPI Comments Details: 59-year-old female patient presenting with a history of a developmental anomaly and is mostly nonverbal returning today for routine high risk breast cancer examination. Her family history is significant for prostate cancer in her father and maternal uncle, colon cancer in her mother and maternal grandmother, ovarian cancer in her mother and maternal grandmother, breast cancer in her maternal grandmother, and stomach cancer in her mother.? The patient has never had breast problems or breast surgery. She does complain of bilateral breast pain but her mother feels it may be related to a seizure disorder. She is , postmenopausal, with no history of control use.? No previous genetic testing has been performed on any of her family members.? Her Tyrer-Cuzick model lifetime risk of breast cancer was previously calculated at 23 % putting her at high risk for breast cancer.? Patient is unable to tolerate breast MRIs. She denies any new breast symptoms in either breast. Most recent mammogram performed on 05/19/2024 revealed no mammographic evidence of malignancy (BI-RADS 2). Follow-up mammogram in 1 year is recommended. [facility] Medical History Morbid obesity with BMI of 40.0-44.9, adult Benign head tremor Wheelchair bound Mild recurrent major depression Constipation by delayed colonic transit At high risk for breast cancer Developmental anomaly GERD (gastroesophageal reflux disease) Shoulder pain Seizures Hypovitaminosis D Dyslipidemia Urinary incontinence Surgical History History of colonoscopy (01/25/16) History of shoulder surgery Family History Father Hypertension Prostate cancer Mother Stomach cancer Ovarian cancer Colon cancer Maternal Grandmother Breast cancer Colon cancer Stomach cancer Maternal Uncle Prostate cancer Maternal Aunt Stomach cancer Family/Other FH: mental illness Maternal Aunt History of throat cancer Social History Household Members Other:: lives with cousin Housing: Apartment Alcohol intake: never Patient Tobacco Use Status: Never used Tobacco e-Cigarette/Vaping Use: Never Used Second Hand Smoke Exposure: No service: No Current occupational status: disabled Cognitive needs: Yes Hearing needs: No Vision needs: No Female Reproductive History Menstrual Age of Menarche: 11 Review of Systems Const All systems reviewed & are unremarkable except as noted in HPI and below Physical Exam Vital Signs: Last Vital Signs Pulse 73 08/04/24 14:14 BP 110/57 L 08/04/24 14:14 BMI result Body Mass Index 36.5 Const Other: Nonverbal and wheelchair, no acute distress, well nourished HEENT Head: Yes normocephalic and Yes atraumatic Neck Neck: Yes no lymphadenopathy Chest Other: Left breast: No skin change, no nipple retraction, no nipple discharge, no palpable mass, no enlarged lymph nodes. Right breast: No skin change, no nipple retraction, no nipple discharge, no palpable mass, no enlarged lymph nodes Resp Other: Breathing comfortably on room air, no respiratory distress Skin Other: Warm, dry, no rash. Extrem General: Yes no clubbing, cyanosis or edema Assessment & Plan Assessment & Plan (1) At high risk for breast cancer: Code(s): Z91.89 - Other specified personal risk factors, not elsewhere classified Category: Medical (2) Mastodynia of right breast: Code(s): N64.4 - Mastodynia Category: Medical Plan 59-year-old female patient high risk for breast cancer with a Tyrer-Cuzick risk of score of 23% returning for six-month follow-up breast exam. Her most recent mammogram and ultrasound of 05/19/2024 revealed no mammographic evidence of malignancy (BI-RADS 2. Follow up mammogram in 1 year is recommended. Examination today revealed no suspicious findings in either breast and no enlarged lymph nodes. I recommended a follow-up examination in 6 months. Coding Level of Care Code Est Pt Level 3 (09288) Complex EM visit Add On G2211 Diagnoses At high risk for breast cancer Z91.89 Mastodynia of right breast N64.4
[2024-08-04 14:14] VITALS: BP 110/57; PULSE 73; BMI 36.5
--- OUTSIDE RECORDS SUMMARY | 2024-08-04 15:50 | XMS_ITS | Clinical Summary ---
Author Organization [address] [facility] Address [address] [place] [address] Phone Care Team Providers Care Document Design Specialist Name Role Phone Cristina Chaidez MD Primary Care Provider [phone] Allergies No known active allergies Medications silver [...] patient's age to complete this topic Insurance [facility] MEDICARE Member Subscriber Plan / Payer (Ef fective 2018-Present) Name:Cristina Wagoner Relation to Subscriber:Self Name:Cristina Wagoner Payer ID:[id number] Group ID:[id number] Type:Not on file Address: [address] [place] [address] Care Teams Document Design Specialist Relationship Specialty Start Date End Date Cristina Chaidez MD 2 [facility] , [address] Physician Associ D/B/A: [facility] MIKAELA Escobedo PCP - General 01/06/22
== END 2024-08-04 14:22 | disposition home or self-care (01) ==
LOC: HO.HGS 14:07
PROVIDERS: PCP Internal Medicine; Visit Provider Surgery
DX: Z91.89 Other specified personal risk factors, not elsewhere classified (principal); N64.4 Mastodynia
CPT/HCPCS: 99213; G2211

== ENCOUNTER → 2024-08-04 14:06 | Outpatient (BNVA) | payer OTHER, SELFPAY | PROVIDERS: PCP Internal Medicine; Visit Provider Surgery | DX: N64.4 Mastodynia (principal); Z91.89 Other specified personal risk factors, not elsewhere classified | CPT/HCPCS: 99212 ==